=== PATIENT | male | born 1930 | race Caucasian/White ===

== ENCOUNTER 2017-01-16 15:18 | Inpatient (IN) | payer OTHER ==
[~2017-01-16] VITALS: Ht 167.6 cm; Wt 58.1 kg
--- NOTE | ~2017-01-16 | D ---
[facility] [place] [address] DISCHARGE SUMMARY Name: ENRIQUE ANTONIO Room #: 204-P ADM IN M.R.#: [id number] Admission: 01/16/17 Attend Phys: Ramon Dee MD Discharge: Date of : 30 Report #: [id number] THIS REPORT FOR: //name// CC: Ramon Dee DATE OF SERVICE: 01/22/2017 DATE OF ADMISSION: 01/16/2017. DATE OF DISCHARGE: 01/22/2017. ADMITTING DIAGNOSIS: Atrial fibrillation with rapid ventricular response. DISCHARGE DIAGNOSES: 1. Atrial fibrillation with rapid ventricular response. 2. Chronic obstructive pulmonary disease. 3. Aspiration. 4. Peptic ulcer disease. 5. Anemia. 6. Debility. 7. Chronic neuropathy. 8. Allergic rhinitis. 9. Glaucoma. HOSPITAL COURSE: The patient was admitted with weakness, found to be in AFib with RVR. He was seen by cardiology. Meds were ordered and adjusted for his rate. He also had significant coughing and congestion and was thought to be aspirating. Speech was consulted and arrangements were made. He did go on a mechanical soft diet and did better with that. He did have some anemia. He has had a recent ulcer. In light of that, he has resumed on his Protonix. His hemoglobin did remain stable, however. In light of his severe debility and his ulcer, he is not a candidate for anticoagulation. He was very weak and not stable for discharge to home. After his rate was controlled, his speech was improved so that he can be taken to rehab. See the discharge documents for his discharge meds. He will do PT, OT and speech and he have mechanical soft diet and he will see me in outpatient once he has completed his rehab. By: 0719 0946 Ramon Dee MD /nt
--- NOTE | ~2017-01-16 | EKG ---
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: [facility] : 1930 Requested By: Isauro Burger Order Number: [id number] MD: Nicola James Measurements Intervals [place] Rate: 149 P: CT: QRS: 57 QRSD: 121 T: -13 QT: 297 QTc: 468 Interpretive Statements Atrial fibrillation with a rapid ventricular response Right bundle branch block Baseline wander in lead(s) V3 Compared to ECG 12/02/2016 15:47:39 No significant change was found Electronically Signed On 01-18-2017 11:29:59 CDT by Nicola James [email or web address] <ELECTRONICALLY SIGNED> By: Nicola James MD, [facility] 01/18/17 1129 1522 1522 Nicola James MD, [facility] /EPI
--- NOTE | ~2017-01-16 | H ---
[facility] [place] [address] HISTORY AND PHYSICAL Name: ENRIQUE ANTONIO Room #: 207-P ADM IN M.R.#: [id number] Admission: 01/16/17 Attend Phys: Ramon Dee MD Discharge: Date of : 30 Report #: [id number] THIS REPORT FOR: //name// CC: Ramon Dee DATE OF SERVICE: 01/16/2017 CHIEF COMPLAINT: Weakness. HISTORY OF PRESENT ILLNESS: The patient is an 86-year-old male well known to me who called the office late yesterday, said he was very weak, he could not get to the door and had not been eating and drinking for several days. He has no appetite. We called ambulance for him and he is brought to the ER for this weakness. PAST MEDICAL HISTORY: Significant for chronic neuropathy, chronic headaches, prior AFib, prior left arm fracture, DJD with knee replacement, prior rib fractures, chronic pain syndrome, glaucoma, prior ulcer with upper GI bleed in November. MEDICATIONS: Lanoxin 0.125 mg a day, Protonix 40 mg b.i.d., MiraLax 17 mg a day, metoprolol 12.5 mg b.i.d., diltiazem 240 mg a day, gabapentin 300 mg t.i.d., Tylenol No. 3 p.r.n., benzonatate p.r.n., aspirin 81 mg a day. ALLERGIES: No known drug allergies. SOCIAL HISTORY: Prior smoker. Alcohol, he still drinks although he declines. He denies that he still drinks intermittently. REVIEW OF SYSTEMS: CONSTITUTIONAL: Generalized weakness and malaise. No fever or chills. HEENT: No headaches today but he had them chronically. CHEST: He has shortness of breath and rapid heartbeat. No chest pain. GASTROINTESTINAL: Positive for nausea, no vomiting, no diarrhea. GENITOURINARY: No burning or frequency. EXTREMITIES: Chronic joint pains. SKIN: No new rashes or wounds. NEUROLOGIC: Except for the chronic neuropathy, no new numbness. PHYSICAL EXAMINATION: VITAL SIGNS: In the ER, blood pressure 137/98, his pulse is 156, respiratory rate is 13. He is afebrile. Currently his pulse is in the 90s. GENERAL: He is awake and confused, but he is responsive. He is in no acute distress. HEENT: His mucous membranes are dry. NECK: Supple, without adenopathy, thyromegaly or bruits. [facility] [address] [place] [address] HISTORY AND PHYSICAL Name: ENRIQUE ANTONIO Room #: 207-P [facility] IN [facility]#: [id number] Admission: 01/16/17 Attend Phys: Ramon Dee MD Discharge: Date of : 30 Report #: [id number] CHEST: Shows decreased breath sounds in the bases, otherwise no wheezes. CARDIOVASCULAR: He has an irregular rhythm with a rate in the 90s. He was tachycardic in the ER, no S4. ABDOMEN: Soft, mild tenderness at mid epigastrium. Bowel sounds are active. EXTREMITIES: Show no edema. Pulses are intact. LABORATORY DATA: EKG showed AFib with RVR, rate of 149 in the ER. His sodium is 136, potassium 3.6, chloride 102, bicarbonate 28, BUN 14, creatinine 1.1, glucose 120, calcium 8.0, AST 26, ALT 54. CK is 142, MB is 3. Troponin less than 0.04. BNP is 1537. INR is 1.2. WBCs are 5.2, hemoglobin 8.9, hematocrit 28.8, platelet count 427, 70 segs, 19 lymphs. Chest x-ray shows decreased inspiration with atelectasis. ASSESSMENT AND PLAN: 1. Atrial fibrillation with rapid ventricular response recurrent. Started on Cardizem drip. He has slowed down now. Consult cardiology. He did have an echo in November when he had similar episode which showed normal ejection fraction. We will not repeat the echo at this time. 2. Intractable nausea with recent gastric ulcers. He has been on Protonix. Hemoglobin is low. We will monitor hemoglobin, not transfused at this stage. 3. Generalized weakness. He has not been eating and drinking. I am going to go ahead and give him some IV fluids in light of normal ejection fraction to help support that especially with his poor intake. 4. Chronic pain from arthritis. We can renew his home meds otherwise. <ELECTRONICALLY SIGNED> By: Ramon Dee MD 01/18/17 0844 0931 1355 Ramon Dee MD /nt
--- NOTE | ~2017-01-16 | EKG ---
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
--- NOTE | ~2017-01-16 | HC ---
[facility] [place] [address] CONSULTATION Name: ENRIQUE ANTONIO Room #: 207-P [facility] IN M.R.#: [id number] Admission: 01/16/17 Attend Phys: Ramon Dee MD Discharge: Date of : 30 Report #: [id number] THIS REPORT FOR: //name// CC: Ramon Dee REASON FOR CONSULTATION: Atrial fibrillation. HISTORY OF PRESENT ILLNESS: The patient is an 86-year-old gentleman with a history of permanent atrial fibrillation. He has been seen several times by Dr. Tracy. Atrial fibrillation was diagnosed in 2017 and he has been on a combination of rate controlling medications. Anticoagulant therapy has been deemed to be prohibitively high risk due to recurrent anemia and GI blood loss. He now presents with several days of nausea and anorexia. He denies palpitations, chest pain or pressure or heart failure symptoms including orthopnea or paroxysmal nocturnal dyspnea. On presentation, he was found to be in atrial fibrillation with a rapid ventricular response. He is largely asymptomatic from the standpoint of this atrial dysrhythmia. ALLERGIES: There are no known drug allergies. MEDICATIONS: Include digoxin 0.125 mg daily, Protonix, metoprolol 12.5 mg twice daily, Diltiazem CD 240 mg daily. PAST MEDICAL HISTORY: His past history and medical records have been reviewed and include a history of left arm fracture, dislocated right shoulder from a fall, several prior back surgeries, glaucoma. SOCIAL HISTORY: He is a former smoker, prior drinker. FAMILY HISTORY: Unremarkable for premature coronary disease. REVIEW OF SYSTEMS: All systems negative except as that noted above. PHYSICAL EXAMINATION: GENERAL: A pleasant gentleman in no distress, looks frail and chronically debilitated. VITAL SIGNS: Blood pressure is 106/58, heart rate of 84 and irregular. He is afebrile, 5 feet 6 inches tall, 137 pounds. HEENT: There are neither xanthelasma, subcutaneous xanthomata, oral mucosa or digital cyanosis or kyphoscoliosis present. CHEST: Clear to auscultation and percussion. CARDIAC: Reveals an irregularly irregular rhythm with normal S1, S2. No murmurs or rubs. ABDOMEN: Soft and nontender. EXTREMITIES: Without cyanosis, clubbing or edema. Radial pulses are 2+. NEUROLOGIC: He is alert with a nonfocal exam. [facility] [address] [place] [address] CONSULTATION Name: ENRIQUE ANTONIO Room #: [address] [place] [address] IN M.R.#: [id number] Admission: 01/16/17 Attend Phys: Ramon Dee MD Discharge: Date of : 30 Report #: [id number] LABORATORY DATA: Sodium 136, potassium 3.6, creatinine 1.1, troponin of 0. proBNP of 1537. White count 5.2, hemoglobin 8.9, hematocrit 28, platelet count 427. EKG: Atrial fibrillation. IMPRESSION: 1. Atrial fibrillation, permanent. 2. Anemia; history of prior gastrointestinal blood loss. 3. Glaucoma. 4. History of recurrent falls with major trauma. RECOMMENDATIONS: 1. Continued rate controlling agents. 2. Low dose daily aspirin. I agree that the patient represents a prohibitively high risk for long-term anticoagulant therapy despite an elevated CHADS score. No additional cardiovascular testing is needed at this point. Thank you for asking me to participate in his care. <ELECTRONICALLY SIGNED> By: Nicola James MD, [facility] 01/18/17 1209 0944 1724 Nicola James MD, [facility] /nt
[~2017-01-16 15:18] MED LIST: ACETAMINOPHEN-1 EAC1 PO; ALLERGY RELIEF4 MG PO; ASCOMP WITH CO1 EACH PO; ASPIRIN81 M2 PO; AYR SALINE50 ML NASAL; BREATHE RIGHT1 EACH TP; CARDIZEM CD240 MG PO; DIGOXIN125 MCG PO; FIORICET-COD 31 EACH PO; HYPOTEARS EYE D15 ML OP; LOPRESSOR25 PO; MIRALAX17 GM PO; NEURONTIN 300300 M1 PO; NORCO 5-325 TA1 EACH PO; OXYCONTIN20 M1 PO; PANTOPRAZOLE SO40 M1 PO; SYSTANE BALANCE10 ML OP; TESSALON PERLE100 MG PO; TIMOLOL MA0.25 %/52 OPHTHALMIC; VITAMINS; [UNRECOGNIZED DRUG - OTHER] PO
[2017-01-16 15:19] VITALS: BP 137/98
[2017-01-16 15:48] LABS: ABSOLUTE NEUTROPHILS 3.7 thou/uL (1.4-8.2); EOSINOPHILS 0.6 % (0.0-3.0); HEMATOCRIT 28.8 % (42.0-52.0); HEMOGLOBIN 8.9 gm/dL (14.0-18.0); LYMPHOCYTES 19.5 % (24.0-44.0); MANUAL DIFF NO; MCH 25.6 pg (26.0-34.0); MCV 82.6 fL (80.0-100.0); MONOCYTES 8.8 % (1.0-8.0); PLATELET COUNT 427 thou/uL (150-400); POLYS 70.1 % (36.0-66.0); RBC 3.48 mil/uL (4.50-6.00); RDW 18.3 % (10.5-14.5); WBC 5.2 thou/uL (4.0-11.0)
[2017-01-16 15:58] LABS: ANION GAP 6 mmol/L (7-16); BUN 14 mg/dL (7-18); CHLORIDE 102 mmol/L (98-107); CO2 28 mmol/L (21-32); CREATININE 1.1 mg/dL (0.7-1.3); GLUCOSE 120 mg/dL (74-106); POTASSIUM 3.6 mmol/L (3.5-5.1); SODIUM 136 mmol/L (136-145)
[2017-01-16 16:09] LABS: ALBUMIN 3.2 g/dL (3.4-5.0); ALKALINE PHOSPHATASE 94 U/L (46-116); APTT 27.6 Seconds (24.5-32.8); INR 1.2; MAGNESIUM 2.1 mg/dL (1.8-2.4); NT-PRO BRAIN NAT PEPTIDE 1537 pg/mL (<300); SGOT 26 U/L (15-37); SGPT 54 U/L (30-65); TOTAL BILIRUBIN 0.3 mg/dL (<0.1-1.0); TOTAL PROTEIN 6.2 g/dL (6.4-8.2); TROPONIN-I < 0.04 ng/mL (<0.04-0.07)
[2017-01-16 16:20] VITALS: BP 118/79
[2017-01-16 17:58] VITALS: BP 116/69
[2017-01-16 19:20] VITALS: BP 118/79
[2017-01-16 23:24] VITALS: BP 97/64
[2017-01-17 03:17] VITALS: BP 111/76
[2017-01-17 08:00] VITALS: BP 106/58
[2017-01-17 09:42] LABS: HEMATOCRIT 26.2 % (42.0-52.0); HEMOGLOBIN 8.1 gm/dL (14.0-18.0); MCH 25.9 pg (26.0-34.0); MCHC 30.9 g/dL (28.0-37.0); MCV 83.7 fL (80.0-100.0); RBC 3.13 mil/uL (4.50-6.00); RDW 18.1 % (10.5-14.5); WBC 5.1 thou/uL (4.0-11.0)
[2017-01-17 12:00] VITALS: BP 107/69
[2017-01-17 15:44] VITALS: BP 123/82
[2017-01-17 19:30] VITALS: BP 111/80
[2017-01-17 23:57] VITALS: BP 95/64
[2017-01-18] VITALS (7 sets, daily range): BP systolic 93–111; BP diastolic 66–81
[2017-01-19] VITALS (7 sets, daily range): BP systolic 99–121; BP diastolic 67–85
[2017-01-19 03:34] LABS: ALBUMIN 2.6 g/dL (3.4-5.0); CALCIUM 7.6 mg/dL (8.5-10.1); CREATININE 0.9 mg/dL (0.7-1.3); POTASSIUM 3.5 mmol/L (3.5-5.1); TOTAL BILIRUBIN 0.3 mg/dL (<0.1-1.0); TOTAL PROTEIN 5.3 g/dL (6.4-8.2)
[2017-01-20 04:16] VITALS: BP 117/76
[2017-01-20 06:54] LABS: HEMATOCRIT 27.4 % (42.0-52.0); HEMOGLOBIN 8.4 gm/dL (14.0-18.0); MCH 25.4 pg (26.0-34.0); MCHC 30.8 g/dL (28.0-37.0); MCV 82.5 fL (80.0-100.0); RBC 3.33 mil/uL (4.50-6.00); RDW 18.2 % (10.5-14.5); WBC 5.6 thou/uL (4.0-11.0)
[2017-01-20 07:10] LABS: ALBUMIN 2.8 g/dL (3.4-5.0); CALCIUM 7.7 mg/dL (8.5-10.1); CREATININE 0.9 mg/dL (0.7-1.3); POTASSIUM 3.7 mmol/L (3.5-5.1); TOTAL BILIRUBIN 0.4 mg/dL (<0.1-1.0); TOTAL PROTEIN 5.6 g/dL (6.4-8.2)
[2017-01-20 08:00] VITALS: BP 122/90
[2017-01-20 11:37] VITALS: BP 101/71
[2017-01-20 15:05] VITALS: BP 111/72
[2017-01-20 20:03] VITALS: BP 99/65
[2017-01-21] VITALS: BP 127/76
[2017-01-21 03:42] VITALS: BP 127/81
[2017-01-21 08:38] VITALS: BP 105/59
[2017-01-21 15:45] VITALS: BP 109/75
[2017-01-21 20:42] VITALS: BP 111/78
[2017-01-22 03:59] VITALS: BP 115/74
[2017-01-22] MEDS ORDERED: ATENOLOL 25 MG25 M1 PO (07:13)
[2017-01-22 07:29] VITALS: BP 116/78
[2017-01-22 11:47] VITALS: BP 101/65
== END 2017-01-22 13:15 | DRG 291 ==
LOC: ER 15:18 → EROBS 16:36 → 2N 16:36
PROVIDERS: Emergency Medicine; Family Medicine
DX: I50.21 Acute systolic (congestive) heart failure (principal); E43 Unspecified severe protein-calorie malnutrition; J98.11 Atelectasis; M17.11 Unilateral primary osteoarthritis, right knee; H40.9 Unspecified glaucoma; G62.9 Polyneuropathy, unspecified; D64.9 Anemia, unspecified; I48.2 Chronic atrial fibrillation; K27.9 Peptic ulcer, site unspecified, unspecified as acute or chronic, without hemorrhage or perforation; J30.9 Allergic rhinitis, unspecified; R51 Headache; G89.4 Chronic pain syndrome; N40.0 Benign prostatic hyperplasia without lower urinary tract symptoms; J44.9 Chronic obstructive pulmonary disease, unspecified; K59.00 Constipation, unspecified; Z96.651 Presence of right artificial knee joint; Z87.891 Personal history of nicotine dependence; Z82.49 Family history of ischemic heart disease and other diseases of the circulatory system; Z68.20 Body mass index [BMI] 20.0-20.9, adult; Z79.82 Long term (current) use of aspirin; Z90.49 Acquired absence of other specified parts of digestive tract; Z79.899 Other long term (current) drug therapy
CPT/HCPCS: 10081

== ENCOUNTER 2017-01-28 23:13 | Emergency (ER) | payer OTHER ==
[~2017-01-28] VITALS: Ht 167.6 cm; Wt 62.1 kg
--- NOTE | ~2017-01-28 | EKG ---
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
[~2017-01-28 23:13] MED LIST changes: +ATENOLOL 25 MG25 M1 PO
[2017-01-29 00:14] LABS: EOSINOPHILS 4.2 % (0.0-3.0); HEMATOCRIT 25.4 % (42.0-52.0); HEMOGLOBIN 7.9 gm/dL (14.0-18.0); LYMPHOCYTES 26.3 % (24.0-44.0); MCH 24.9 pg (26.0-34.0); MCV 80.6 fL (80.0-100.0); MONOCYTES 7.6 % (1.0-8.0); PLATELET COUNT 306 thou/uL (150-400); POLYS 60.9 % (36.0-66.0); RBC 3.15 mil/uL (4.50-6.00); RDW 18.3 % (10.5-14.5); WBC 8.2 thou/uL (4.0-11.0)
[2017-01-29 00:16] LABS: MANUAL DIFF NO
[2017-01-29 00:16] LABS: URINE BILIRUBIN NEGATIVE (Negative); URINE BLOOD NEGATIVE (Negative); URINE COLOR YELLOW; URINE GLUCOSE-RANDOM* NEGATIVE (Negative); URINE KETONES NEGATIVE (Negative); URINE LEUKOCYTES-REFLEX NEGATIVE (Negative); URINE PROTEIN (DIPSTICK) NEGATIVE (Negative); URINE SPECIFIC GRAVITY 1.025 (1.003-1.035)
[2017-01-29 00:21] LABS: ANION GAP 10 mmol/L (7-16); BUN 17 mg/dL (7-18); CALCIUM 8.3 mg/dL (8.5-10.1); CHLORIDE 102 mmol/L (98-107); CO2 28 mmol/L (21-32); CREATININE 0.9 mg/dL (0.7-1.3); GLUCOSE 92 mg/dL (74-106); POTASSIUM 3.7 mmol/L (3.5-5.1); SODIUM 140 mmol/L (136-145)
[2017-01-29 00:28] LABS: ALBUMIN 3.1 g/dL (3.4-5.0); ALKALINE PHOSPHATASE 91 U/L (46-116); SGOT 24 U/L (15-37); SGPT 29 U/L (30-65); TOTAL BILIRUBIN 0.2 mg/dL (<0.1-1.0); TOTAL PROTEIN 6.6 g/dL (6.4-8.2); TROPONIN-I < 0.04 ng/mL (<0.04-0.07)
[2017-01-29] MEDS ORDERED: ZOFRAN ODT4 MG DISSOLVE (01:19)
== END 2017-01-29 02:27 | disposition home or self-care (01) ==
LOC: ER 23:13
PROVIDERS: Emergency Medicine
DX: R11.2 Nausea with vomiting, unspecified (principal); R05 Cough; R10.9 Unspecified abdominal pain; Z96.651 Presence of right artificial knee joint; Z98.890 Other specified postprocedural states; Z87.891 Personal history of nicotine dependence

== ENCOUNTER 2017-01-31 17:40 | Emergency (ER) | payer OTHER ==
[~2017-01-31] VITALS: Ht 167.6 cm; Wt 61.2 kg
[~2017-01-31 17:40] MED LIST changes: +ZOFRAN ODT4 MG DISSOLVE
[2017-01-31 19:26] LABS: URINE BILIRUBIN NEGATIVE (Negative); URINE BLOOD NEGATIVE (Negative); URINE COLOR YELLOW; URINE GLUCOSE-RANDOM* NEGATIVE (Negative); URINE KETONES NEGATIVE (Negative); URINE NITRITE NEGATIVE (Negative); URINE PROTEIN (DIPSTICK) TRACE (Negative)
[2017-01-31] MEDS ORDERED: ACETAMINOPHEN-1 EAC1 PO (20:21)
== END 2017-01-31 21:59 | disposition home or self-care (01) ==
LOC: ER 17:40
PROVIDERS: Physician Assistant
DX: N50.811 Right testicular pain (principal); G89.29 Other chronic pain; G62.9 Polyneuropathy, unspecified; I48.91 Unspecified atrial fibrillation; Z86.2 Personal history of diseases of the blood and blood-forming organs and certain disorders involving the immune mechanism; Z76.0 Encounter for issue of repeat prescription; Z90.89 Acquired absence of other organs; Z87.891 Personal history of nicotine dependence

== ENCOUNTER 2017-02-09 04:45 | Inpatient (IN) | payer OTHER ==
[~2017-02-09] VITALS: Ht 167.6 cm; Wt 69.4 kg
--- NOTE | ~2017-02-09 | H ---
[facility] [place] [address] HISTORY AND PHYSICAL Name: ENRIQUE ANTONIO Room #: 433-I ADM IN M.R.#: [id number] Admission: 02/09/17 Attend Phys: Ramon Dee MD Discharge: Date of : 30 Report #: [id number] THIS REPORT FOR: //name// CC: Ramon Dee DATE OF SERVICE: 02/09/2017 CHIEF COMPLAINT: Chills, fatigue and cough. HISTORY OF PRESENT ILLNESS: The patient is an 86-year-old male, well known to me, when he told the nursing staff that he was having chills, cough and shortness of breath. He has been having the chills off and on for several days. I had treated him in the facility with cefdinir for upper respiratory tract infection about a week ago. He should be still on that at this time. He also had a history of atrial fibrillation and he is on medications for that. He had had a fall and that is why he presented to the facility. PAST MEDICAL HISTORY: Significant for: 1. Severe DJD with multiple joint surgeries. 2. Chronic pain syndrome. 3. Neuropathy. 4. Chronic headaches. 5. Esophageal strictures. 6. Atrial fibrillation with RVR. 7. Upper gastrointestinal bleed in November 2016. MEDICATIONS: Include Zofran p.r.n., atenolol 25 mg 3 tablets day, digoxin 0.125 mg a day, Protonix 40 mg b.i.d., MiraLax 17 grams a day, Cardizem 240 mg a day, Tylenol No. 3 p.r.n., gabapentin 300 mg t.i.d., Lorazepam 0.5 p.r.n., vitamin B daily, Tessalon Perles p.r.n., aspirin 81 mg a day and antihistamine daily. ALLERGIES: No known drug allergies. SOCIAL HISTORY: He is a prior smoker, not current. Alcohol use fairly regularly until recently admitted. No recreational drugs. REVIEW OF SYSTEMS: CONSTITUTIONAL: Positive for chills. No actual temperatures. He has the fatigue and weakness. HEENT: Chronic headaches. No visual changes. CHEST: Positive as above. No sputum production. GASTROINTESTINAL: No nausea, vomiting, diarrhea or constipation. GENITOURINARY: No burning or frequency. EXTREMITIES: Generalized lower extremity pain and weakness. PHYSICAL EXAMINATION: [facility] [address] [place] [address] HISTORY AND PHYSICAL Name: ENRIQUE ANTONIO Room #: 433-I [facility] IN ..#: [id number] Admission: 02/09/17 Attend Phys: Ramon Dee MD Discharge: Date of : 30 Report #: [id number] VITAL SIGNS: In the ER, blood pressure is 111/69, pulse is 85, respiratory rate is 20 and O2 sat is 95%. His weight is 147 pounds. GENERAL: The patient appears edematous to me and somewhat dyspneic. HEENT: His mucous membranes are moist. NECK: Supple, without increased central venous pressure. CHEST: Shows bilateral wheezes and bibasilar crackles. CARDIOVASCULAR: He has irregular rhythm with the rate in the 90s. ABDOMEN: Soft, nondistended and nontender. No masses. Bowel sounds are active. EXTREMITIES: Show 2+ edema, which is also new since last week. His pulses are intact. SKIN: Shows normal skin turgor. His EKG showed AFib with rate of 87. No new ST-segment changes. LABORATORY DATA: Sodium 140, potassium 3.7, chloride is 102, bicarbonate 25, BUN 27, creatinine 1.2 and glucose is 57. Lactic acid 3.8. Troponin 0.06. BNP 2475. WBC is 9.8, hemoglobin 8.9, hematocrit 29.8, platelet count 193, 58 segs, 6 bands and 16 lymphs. Chest x-ray shows bilateral pleural effusion, per report from the ER. I do not have the report in front of me. ASSESSMENT: 1. Acute respiratory distress with hypoxemia. 2. Hospital-acquired pneumonia. 3. Atrial fibrillation. 4. Congestive heart failure, acute, systolic, probably on the basis of atrial fib and recent respiratory tract infection. PLAN: He will be started on IV antibiotics Zosyn and Levaquin per the protocol. We will add breathing treatments for the wheezing. We will add Lasix 40 mg IV b.i.d. and potassium 20 mEq b.i.d. for his heart failure. Resume his other cardiac meds. We will get PT and OT as well. By: 1306 1507 Ramon Dee MD /nt
--- NOTE | ~2017-02-09 | EKG ---
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: [id number] : 1930 Requested By: Roxie Bejarano Order Number: [id number] MD: Nicola James Measurements Intervals [place] Rate: 87 P: [place]: QRS: 49 QRSD: 117 T: 236 QT: 349 QTc: 420 Interpretive Statements Atrial fibrillation Incomplete right bundle branch block Low voltage, extremity and precordial leads Nonspecific repol abnormality, lateral leads Compared to ECG 02/07/2017 15:29:26 no significant change was found Electronically Signed On 02-10-2017 8:41:06 CDT by Nicola James [email or web address] <ELECTRONICALLY SIGNED> By: Nicola James MD, [facility] 02/10/17 0841 0456 0456 Nicola James MD, [facility] /EPI
[2017-02-09 04:48] VITALS: BP 111/69
[2017-02-09] MEDS ORDERED: ATIVAN0.5 MG (05:04)
[2017-02-09 05:16] LABS: HEMOGLOBIN 8.9 gm/dL (14.0-18.0)
[2017-02-09 05:18] LABS: HEMATOCRIT 29.8 % (42.0-52.0); MCV 79.9 fL (80.0-100.0); PLATELET COUNT 193 thou/uL (150-400); RBC 3.73 mil/uL (4.50-6.00); RDW 18.6 % (10.5-14.5); WBC 9.8 thou/uL (4.0-11.0)
[2017-02-09 05:19] LABS: MANUAL DIFF YES
[2017-02-09 05:24] LABS: CALCIUM 8.3 mg/dL (8.5-10.1); CREATININE 1.2 mg/dL (0.7-1.3); POTASSIUM 3.7 mmol/L (3.5-5.1)
[2017-02-09 05:36] LABS: TROPONIN-I 0.06 ng/mL (<0.04-0.07)
[2017-02-09 06:00] LABS: ABSOLUTE NEUTROPHILS 7.3 thou/uL (1.4-8.2); ANISOCYTOSIS 2+; MACROCYTES 1+; METAMYELOCYTES 1 %; MICROCYTES 1+; SCHISTOCYTES FEW; TOTAL CELL COUNT 100
[2017-02-09 06:01] LABS: BURR CELLS 1+; POLYCHROMASIA OCCASIONAL
[2017-02-09 07:18] VITALS: BP 116/77
[2017-02-09 08:36] VITALS: BP 110/67
[2017-02-09 12:00] VITALS: BP 128/85
[2017-02-09 16:00] VITALS: BP 129/73
[2017-02-09 20:30] VITALS: BP 108/78
[2017-02-10 04:07] VITALS: BP 112/68
[2017-02-10 07:51] VITALS: BP 121/68
[2017-02-10 09:03] LABS: HEMATOCRIT 32.2 % (42.0-52.0); HEMOGLOBIN 9.8 gm/dL (14.0-18.0); MCH 23.6 pg (26.0-34.0); MCHC 30.4 g/dL (28.0-37.0); MCV 77.6 fL (80.0-100.0); RBC 4.15 mil/uL (4.50-6.00); RDW 18.4 % (10.5-14.5); WBC 7.1 thou/uL (4.0-11.0)
[2017-02-10 09:12] LABS: CALCIUM 7.7 mg/dL (8.5-10.1); CREATININE 0.8 mg/dL (0.7-1.3)
[2017-02-10 09:16] LABS: POTASSIUM 2.8 mmol/L (3.5-5.1)
[2017-02-10 12:15] VITALS: BP 103/56
[2017-02-10 16:00] VITALS: BP 90/51
[2017-02-10 19:42] VITALS: BP 91/52
[2017-02-11 05:43] VITALS: BP 110/74
[2017-02-11 08:38] VITALS: BP 114/66
[2017-02-11 08:56] LABS: HEMATOCRIT 28.5 % (42.0-52.0); HEMOGLOBIN 8.7 gm/dL (14.0-18.0); MCH 23.6 pg (26.0-34.0); MCHC 30.4 g/dL (28.0-37.0); MCV 77.8 fL (80.0-100.0); RBC 3.67 mil/uL (4.50-6.00); RDW 18.4 % (10.5-14.5); WBC 6.6 thou/uL (4.0-11.0)
[2017-02-11 09:08] LABS: CALCIUM 7.9 mg/dL (8.5-10.1); CREATININE 0.8 mg/dL (0.7-1.3); POTASSIUM 3.3 mmol/L (3.5-5.1)
[2017-02-11 12:26] VITALS: BP 98/61
[2017-02-11 16:31] VITALS: BP 100/61
[2017-02-11 19:45] VITALS: BP 100/62
[2017-02-12 03:30] VITALS: BP 109/67
[2017-02-12 08:24] VITALS: BP 107/64
[2017-02-12 09:23] LABS: HEMATOCRIT 27.5 % (42.0-52.0); HEMOGLOBIN 8.4 gm/dL (14.0-18.0); MCH 23.6 pg (26.0-34.0); MCHC 30.5 g/dL (28.0-37.0); MCV 77.4 fL (80.0-100.0); RBC 3.55 mil/uL (4.50-6.00); RDW 19.1 % (10.5-14.5); WBC 7.3 thou/uL (4.0-11.0)
[2017-02-12 09:35] LABS: CALCIUM 7.4 mg/dL (8.5-10.1); CREATININE 0.9 mg/dL (0.7-1.3); POTASSIUM 3.6 mmol/L (3.5-5.1)
[2017-02-12 12:06] VITALS: BP 98/60
[2017-02-12 16:57] VITALS: BP 90/53
[2017-02-12 19:40] VITALS: BP 89/53
[2017-02-13 00:36] VITALS: BP 98/63
[2017-02-13 04:01] VITALS: BP 115/65
[2017-02-13 08:00] VITALS: BP 103/59
[2017-02-13 16:00] VITALS: BP 84/48
[2017-02-13 19:25] VITALS: BP 93/55
[2017-02-14 03:30] VITALS: BP 99/62
[2017-02-14 06:02] LABS: CALCIUM 7.9 mg/dL (8.5-10.1); POTASSIUM 4.2 mmol/L (3.5-5.1)
[2017-02-14] MEDS ORDERED: ACETAMINOPHEN-1 EAC1 PO (08:38)
[2017-02-14] MEDS ORDERED: BUTALB-ACETAMI1 EACH PO (08:38)
[2017-02-14] MEDS ORDERED: LEVAQUIN 500 M500 M2 PO (08:40)
== END 2017-02-14 16:20 | DRG 177 ==
LOC: ER 04:45 → 4S 06:08 → EROBS 06:08 → 4S 07:19
PROVIDERS: Emergency Medicine; Family Medicine
DX: J15.6 Pneumonia due to other Gram-negative bacteria (principal); I50.23 Acute on chronic systolic (congestive) heart failure; J18.9 Pneumonia, unspecified organism; Z96.651 Presence of right artificial knee joint; H40.9 Unspecified glaucoma; G62.9 Polyneuropathy, unspecified; E86.0 Dehydration; G89.4 Chronic pain syndrome; R53.81 Other malaise; D63.8 Anemia in other chronic diseases classified elsewhere; I48.2 Chronic atrial fibrillation; R51 Headache; Z90.49 Acquired absence of other specified parts of digestive tract; Z87.891 Personal history of nicotine dependence; Z87.81 Personal history of (healed) traumatic fracture
CPT/HCPCS: 10100

== ENCOUNTER 2017-04-20 09:16 | Inpatient (IN) | payer OTHER ==
[~2017-04-20] VITALS: Ht 167.6 cm; Wt 58.2 kg
--- NOTE | ~2017-04-20 | EKG ---
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
[2017-04-20 09:16] VITALS: BP 111/51
[~2017-04-20 09:16] MED LIST changes: +ATIVAN0.5 MG; +BUTALB-ACETAMI1 EACH PO; +LEVAQUIN 500 M500 M2 PO
[2017-04-20 09:38] LABS: HEMATOCRIT 32.8 % (42.0-52.0); HEMOGLOBIN 10.4 gm/dL (14.0-18.0); MCH 26.6 pg (26.0-34.0); MCHC 31.6 g/dL (28.0-37.0); MCV 84.4 fL (80.0-100.0); PLATELET COUNT 228 thou/uL (150-400); RBC 3.89 mil/uL (4.50-6.00); RDW 21.2 % (10.5-14.5); WBC 5.3 thou/uL (4.0-11.0)
[2017-04-20 09:42] LABS: MANUAL DIFF YES
[2017-04-20 09:46] LABS: ANION GAP 7 mmol/L (7-16); BUN 8 mg/dL (7-18); CHLORIDE 109 mmol/L (98-107); CO2 26 mmol/L (21-32); CREATININE 0.8 mg/dL (0.7-1.3); GLUCOSE 98 mg/dL (74-106); POTASSIUM 3.5 mmol/L (3.5-5.1); SODIUM 142 mmol/L (136-145)
[2017-04-20 09:53] LABS: ALKALINE PHOSPHATASE 71 U/L (46-116); SGOT 23 U/L (15-37); SGPT 14 U/L (30-65); TOTAL BILIRUBIN 0.3 mg/dL (<0.1-1.0); TROPONIN-I < 0.04 ng/mL (<0.04-0.07)
[2017-04-20 10:09] LABS: ABSOLUTE NEUTROPHILS 3.2 thou/uL (1.4-8.2); ANISOCYTOSIS 2+; TOTAL CELL COUNT 100
[2017-04-20 10:37] LABS: URINE BLOOD NEGATIVE (Negative); URINE COLOR YELLOW; URINE GLUCOSE-RANDOM* NEGATIVE (Negative); URINE KETONES NEGATIVE (Negative); URINE LEUKOCYTES-REFLEX NEGATIVE (Negative); URINE PROTEIN (DIPSTICK) TRACE (Negative); URINE SPECIFIC GRAVITY >= 1.030 (1.003-1.035)
[2017-04-20 10:39] LABS: ICTOTEST (BILI CONFIRMATORY) Negative (Negative); URINE BILIRUBIN NEGATIVE (Negative)
[2017-04-20] MEDS ORDERED: SORINE 80 MG TA80 MG PO (13:31)
[2017-04-20] MEDS ORDERED: BUSPIRONE HCL5 MG PO (13:33)
[2017-04-20] MEDS ORDERED: SEROQUEL 25 MG25 M1 PO (13:34)
[2017-04-20] MEDS ORDERED: DEPAKOTE125 MG PO (13:34)
[2017-04-20] MEDS ORDERED: GABAPENTIN 100100 MG PO (13:34)
[2017-04-20 15:00] VITALS: BP 83/55
[2017-04-20 17:22] VITALS: BP 114/70
[2017-04-20 20:17] VITALS: BP 118/81
[2017-04-20 23:29] VITALS: BP 119/64
[2017-04-21 08:48] VITALS: BP 150/78
[2017-04-21 12:04] VITALS: BP 110/62
[2017-04-21 16:01] VITALS: BP 115/64
[2017-04-21 19:33] VITALS: BP 136/77
[2017-04-22 03:30] VITALS: BP 132/78
[2017-04-22 07:51] VITALS: BP 127/71
[2017-04-22 11:49] VITALS: BP 120/78
[2017-04-22 16:15] VITALS: BP 135/84
[2017-04-22 19:27] VITALS: BP 135/77
[2017-04-23 03:47] VITALS: BP 100/56
[2017-04-23 07:39] VITALS: BP 113/71
== END 2017-04-23 15:35 | DRG 308 ==
LOC: ER 09:16 → EROBS 10:38 → 2N 10:38
PROVIDERS: Physician Assistant
DX: I48.0 Paroxysmal atrial fibrillation (principal); E43 Unspecified severe protein-calorie malnutrition; H40.9 Unspecified glaucoma; I50.9 Heart failure, unspecified; Z96.651 Presence of right artificial knee joint; G89.4 Chronic pain syndrome; D64.9 Anemia, unspecified; R53.81 Other malaise; G62.9 Polyneuropathy, unspecified; K59.00 Constipation, unspecified; L89.151 Pressure ulcer of sacral region, stage 1; I95.9 Hypotension, unspecified; I49.5 Sick sinus syndrome; W18.39XA Other fall on same level, initial encounter; Y93.89 Activity, other specified; Y92.098 Other place in other non-institutional residence as the place of occurrence of the external cause; Z87.891 Personal history of nicotine dependence; Z90.49 Acquired absence of other specified parts of digestive tract; Z87.81 Personal history of (healed) traumatic fracture; Y99.8 Other external cause status; Z68.20 Body mass index [BMI] 20.0-20.9, adult
CPT/HCPCS: 10081

== ENCOUNTER 2017-05-20 18:45 | Inpatient (IN) | payer OTHER ==
[~2017-05-20] VITALS: Ht 167.6 cm; Wt 54.5 kg
--- NOTE | ~2017-05-20 | EKG ---
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
[~2017-05-20 18:45] MED LIST changes: +BUSPIRONE HCL5 MG PO; +DEPAKOTE125 MG PO; +GABAPENTIN 100100 MG PO; +SEROQUEL 25 MG25 M1 PO; +SORINE 80 MG TA80 MG PO
[2017-05-20 18:46] VITALS: BP 155/70
[2017-05-20 18:58] LABS: URINE BILIRUBIN NEGATIVE (Negative); URINE BLOOD NEGATIVE (Negative); URINE COLOR YELLOW; URINE GLUCOSE-RANDOM* NEGATIVE (Negative); URINE KETONES NEGATIVE (Negative); URINE NITRITE NEGATIVE (Negative); URINE PROTEIN (DIPSTICK) NEGATIVE (Negative); URINE UROBILINOGEN 0.2 E.U./dl (0.2-1.0)
[2017-05-20 20:18] LABS: HEMOGLOBIN 11.4 gm/dL (14.0-18.0)
[2017-05-20 20:19] LABS: HEMATOCRIT 37.2 % (42.0-52.0); MCH 28.5 pg (26.0-34.0); MCHC 30.8 g/dL (28.0-37.0); MCV 92.6 fL (80.0-100.0); PLATELET COUNT 203 thou/uL (150-400); RBC 4.02 mil/uL (4.50-6.00); RDW 24.5 % (10.5-14.5); WBC 7.1 thou/uL (4.0-11.0)
[2017-05-20 20:22] LABS: ANION GAP 9 mmol/L (7-16); BUN 21 mg/dL (7-18); CALCIUM 8.6 mg/dL (8.5-10.1); CHLORIDE 106 mmol/L (98-107); CO2 28 mmol/L (21-32); GLUCOSE 77 mg/dL (74-106); POTASSIUM 3.5 mmol/L (3.5-5.1); SODIUM 143 mmol/L (136-145)
[2017-05-20 20:25] LABS: MANUAL DIFF YES
[2017-05-20 20:36] LABS: ALBUMIN 3.5 g/dL (3.4-5.0); ALKALINE PHOSPHATASE 82 U/L (46-116); DIRECT BILIRUBIN < 0.1 mg/dL (<0.1-0.3); NT-PRO BRAIN NAT PEPTIDE 2126 pg/mL (<300); SGOT 34 U/L (15-37); SGPT 10 U/L (30-65); TOTAL BILIRUBIN 0.4 mg/dL (<0.1-1.0); TOTAL PROTEIN 7.1 g/dL (6.4-8.2); TROPONIN-I < 0.04 ng/mL (<0.04-0.07)
[2017-05-20 20:44] LABS: ABSOLUTE NEUTROPHILS 4.3 thou/uL (1.4-8.2); TOTAL CELL COUNT 100
[2017-05-20 20:45] LABS: ANISOCYTOSIS 1+; POIKILOCYTOSIS 1+; POLYCHROMASIA OCCASIONAL
[2017-05-20 21:39] VITALS: BP 101/68
[2017-05-20 21:41] VITALS: BP 107/68
[2017-05-20 22:29] VITALS: BP 114/76
[2017-05-21 04:29] VITALS: BP 104/49
[2017-05-21 05:57] LABS: HEMATOCRIT 35.8 % (42.0-52.0); HEMOGLOBIN 11.2 gm/dL (14.0-18.0); MCH 28.4 pg (26.0-34.0); MCHC 31.3 g/dL (28.0-37.0); MCV 90.8 fL (80.0-100.0); RBC 3.94 mil/uL (4.50-6.00); RDW 24.8 % (10.5-14.5); WBC 6.5 thou/uL (4.0-11.0)
[2017-05-21 06:24] LABS: CREATININE 0.9 mg/dL (0.7-1.3); TOTAL BILIRUBIN 0.3 mg/dL (<0.1-1.0); TOTAL PROTEIN 6.4 g/dL (6.4-8.2)
[2017-05-21 06:29] LABS: POTASSIUM 2.7 mmol/L (3.5-5.1)
[2017-05-21 06:53] LABS: MAGNESIUM 1.8 mg/dL (1.8-2.4)
[2017-05-21 07:30] VITALS: BP 88/61
[2017-05-21 12:00] VITALS: BP 110/68
[2017-05-21 15:39] VITALS: BP 113/76
[2017-05-21 20:15] VITALS: BP 127/88
[2017-05-22 03:50] VITALS: BP 127/79
[2017-05-22 07:55] VITALS: BP 152/97
[2017-05-22 11:10] VITALS: BP 137/88
[2017-05-22 15:28] VITALS: BP 144/92
[2017-05-22 19:20] VITALS: BP 159/94
[2017-05-23 04:34] VITALS: BP 158/99
[2017-05-23 08:02] VITALS: BP 149/91
[2017-05-23 14:32] VITALS: BP 145/89
[2017-05-23 16:56] VITALS: BP 140/89
[2017-05-23 19:09] VITALS: BP 161/110
[2017-05-23 23:20] VITALS: BP 151/94
[2017-05-24 03:51] VITALS: BP 141/87
[2017-05-24 07:13] VITALS: BP 136/100
[2017-05-24 11:54] VITALS: BP 110/59
[2017-05-24 16:04] VITALS: BP 133/77
[2017-05-24 20:00] VITALS: BP 126/80
[2017-05-25 04:41] VITALS: BP 142/93
[2017-05-25 07:45] VITALS: BP 154/99
[2017-05-25 11:51] VITALS: BP 138/85
[2017-05-25 15:33] VITALS: BP 146/103
[2017-05-25 19:25] VITALS: BP 135/87
[2017-05-25 20:44] LABS: HEMATOCRIT 35.5 % (42.0-52.0); HEMOGLOBIN 11.3 gm/dL (14.0-18.0); MCH 28.6 pg (26.0-34.0); MCHC 31.8 g/dL (28.0-37.0); RBC 3.95 mil/uL (4.50-6.00); RDW 23.5 % (10.5-14.5); WBC 9.1 thou/uL (4.0-11.0)
[2017-05-25 23:47] VITALS: BP 126/82
[2017-05-26 05:24] VITALS: BP 136/88
[2017-05-26 07:31] VITALS: BP 143/94
[2017-05-26 11:29] VITALS: BP 138/94
[2017-05-26 16:37] VITALS: BP 108/67
[2017-05-26 19:19] VITALS: BP 107/73
[2017-05-27 03:43] VITALS: BP 123/79
[2017-05-27 06:07] LABS: HEMOGLOBIN 11.2 gm/dL (14.0-18.0); MCH 27.9 pg (26.0-34.0); MCHC 30.4 g/dL (28.0-37.0); RBC 4.02 mil/uL (4.50-6.00); RDW 23.3 % (10.5-14.5); WBC 7.7 thou/uL (4.0-11.0)
[2017-05-27 07:44] VITALS: BP 133/96
[2017-05-27 12:02] VITALS: BP 109/71
[2017-05-27 15:20] VITALS: BP 113/74
[2017-05-27 19:19] VITALS: BP 120/73
[2017-05-28] MEDS ORDERED: AUGMENTIN 875875 MG PO (07:34)
[2017-05-28] MEDS ORDERED: CARDIZEM CD120 MG PO (07:35)
[2017-05-28] MEDS ORDERED: PREDNISONE 20 M20 M1 PO (07:36)
[2017-05-28 07:38] VITALS: BP 118/75
[2017-05-28 11:50] VITALS: BP 109/66
[2017-06-05] MEDS ORDERED: COLACE100 MG PO (20:25)
[2017-06-05] MEDS ORDERED: MOBIC7.5 MG PO (21:02)
== END 2017-05-28 13:30 | DRG 177 ==
LOC: ER 18:45 → EROBS 21:16 → 4W 21:16
PROVIDERS: Family Medicine; Nurse Practitioner
DX: J69.0 Pneumonitis due to inhalation of food and vomit (principal); J96.00 Acute respiratory failure, unspecified whether with hypoxia or hypercapnia; E44.0 Moderate protein-calorie malnutrition; Z68.1 Body mass index [BMI] 19.9 or less, adult; H40.9 Unspecified glaucoma; I48.91 Unspecified atrial fibrillation; R53.81 Other malaise; Z96.651 Presence of right artificial knee joint; Z79.899 Other long term (current) drug therapy; Z87.891 Personal history of nicotine dependence; Z90.49 Acquired absence of other specified parts of digestive tract
CPT/HCPCS: 10045

== ENCOUNTER 2017-06-12 10:12 | Inpatient (IN) | payer OTHER ==
[~2017-06-12] VITALS: Ht 160 cm; Wt 68.0 kg
--- NOTE | ~2017-06-12 | EKG ---
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: PEDRO : 1930 Requested By: Ale Fam Order Number: [id number] MD: Nicola James Measurements Intervals [place] Rate: 70 P: 1 MS: 95 QRS: -22 QRSD: 113 T: -23 QT: 372 QTc: 402 Interpretive Statements Sinus rhythm Atrial premature complexes Right bundle branch block Compared to ECG 05/20/2017 18:56:15 No significant change was found Electronically Signed On 06-15-2017 13:24:56 CDT by Nicola James [email or web address] <ELECTRONICALLY SIGNED> By: Nicola James MD, [facility] 06/15/17 1324 1030 1030 Nicola James MD, [facility] /EPI
[~2017-06-12 10:12] MED LIST changes: +AUGMENTIN 875875 MG PO; +CARDIZEM CD120 MG PO; +COLACE100 MG PO; +MOBIC7.5 MG PO; +PREDNISONE 20 M20 M1 PO
[2017-06-12 11:33] VITALS: BP 85/44
[2017-06-12 11:51] LABS: HEMATOCRIT 32.8 % (42.0-52.0); HEMOGLOBIN 10.4 gm/dL (14.0-18.0); MANUAL DIFF YES; MCH 28.1 pg (26.0-34.0); MCHC 31.8 g/dL (28.0-37.0); MCV 88.4 fL (80.0-100.0); PLATELET COUNT 233 thou/uL (150-400); RBC 3.71 mil/uL (4.50-6.00); RDW 20.7 % (10.5-14.5); WBC 3.5 thou/uL (4.0-11.0)
[2017-06-12 12:11] LABS: ANION GAP 9 mmol/L (7-16); BUN 9 mg/dL (7-18); CALCIUM 8.3 mg/dL (8.5-10.1); CHLORIDE 105 mmol/L (98-107); CO2 26 mmol/L (21-32); CREATININE 0.9 mg/dL (0.7-1.3); GLUCOSE 88 mg/dL (74-106); POTASSIUM 3.3 mmol/L (3.5-5.1); SODIUM 140 mmol/L (136-145)
[2017-06-12 12:20] LABS: ALBUMIN 3.1 g/dL (3.4-5.0); ALKALINE PHOSPHATASE 105 U/L (46-116); SGOT 26 U/L (15-37); SGPT 13 U/L (30-65); TOTAL BILIRUBIN 0.3 mg/dL (<0.1-1.0); TOTAL PROTEIN 6.1 g/dL (6.4-8.2); TROPONIN-I < 0.04 ng/mL (<0.04-0.07)
[2017-06-12 12:49] VITALS: BP 92/48
[2017-06-12 12:54] LABS: ABSOLUTE NEUTROPHILS 1.1 thou/uL (1.4-8.2); TOTAL CELL COUNT 100
[2017-06-12 12:57] LABS: ANISOCYTOSIS 2+; OVALOCYTES FEW
[2017-06-12 13:43] VITALS: BP 102/68
[2017-06-12 14:02] VITALS: BP 111/63
[2017-06-12 19:59] VITALS: BP 95/56
[2017-06-13 04:50] VITALS: BP 104/67
[2017-06-13 07:54] VITALS: BP 115/65
[2017-06-13] MEDS ORDERED: NEURONTIN 300300 M1 PO (19:25)
[2017-06-13] MEDS ORDERED: ASPIR 8181 MG PO (19:25)
== END 2017-06-13 16:15 | disposition left against medical advice (07) | DRG 948 ==
LOC: ER 10:12 → EROBS 12:41 → 4S 12:41
PROVIDERS: Nurse Practitioner Family
DX: R53.1 Weakness (principal); I95.9 Hypotension, unspecified; R29.6 Repeated falls; H40.9 Unspecified glaucoma; I48.2 Chronic atrial fibrillation; K59.00 Constipation, unspecified; M79.642 Pain in left hand; Z53.21 Procedure and treatment not carried out due to patient leaving prior to being seen by health care provider; Z90.49 Acquired absence of other specified parts of digestive tract; Z79.899 Other long term (current) drug therapy; Z87.891 Personal history of nicotine dependence
CPT/HCPCS: 10100

== ENCOUNTER 2017-06-13 18:07 | Inpatient (IN) | payer OTHER ==
[~2017-06-13] VITALS: Ht 167.6 cm; Wt 57.2 kg
--- NOTE | ~2017-06-13 | HC ---
[facility] [place] [address] CONSULTATION Name: ENRIQUE ANTONIO Room #: 454-P [facility] IN M.R.#: [id number] Admission: 06/13/17 Attend Phys: Ramon Dee MD Discharge: Date of : 30 Report #: [id number] THIS REPORT FOR: //name// CC: Ramon Dee DATE OF SERVICE: 06/14/2017 REASON FOR CONSULTATION: Atrial fibrillation with rapid ventricular response. HISTORY OF PRESENT ILLNESS: This is an 87-year-old male patient, previously seen for paroxysmal atrial fibrillation, tachybrady syndrome, presented to the Emergency Room complaining of shortness of air. The patient has had several falls, also as an outpatient prior to this admission. The patient states he had been doing fairly well and had been seen in the Emergency Room and left AMA. He was admitted 2 weeks ago for weakness and falls attributable to a tachybrady syndrome. The patient continues to refuse an insertion of a permanent pacemaker and rate controlling medications. He did not have any chest pain, pressure, tightness or heaviness at this time, just shortness of breath. Upon review of his prior history, the patient had been treated with rate controlling medications, but presented with bradyarrhythmias and syncope due to profound bradyarrhythmias and hypotension. He was diagnosed with tachybrady syndrome and recommended to proceed with a permanent pacemaker since he does have episodes of rapid rate, requiring rate control. The patient is unrealistic about his current condition stating that it is just confusion or other excuses. ALLERGIES: No known drug allergies. PAST MEDICAL HISTORY: Significant for: 1. Paroxysmal atrial fibrillation with sick sinus syndrome. 2. Recurrent headaches, etiology of which is uncertain. 3. Glaucoma. 4. Degenerative joint disease. PAST SURGICAL HISTORY: 1. Right arm fraction. 2. Back surgery. 3. Appendectomy. MEDICATIONS: At home are ____, acetaminophen and caffeine, Tylenol No. 3, Meloxicam, pantoprazole, MiraLax, Augmentin, Cardizem, prednisone, aspirin, gabapentin. Timolol, ____. SOCIAL HISTORY: The patient is not currently smoking, but is a former smoker. [facility] [address] [place] [address] CONSULTATION Name: ENRIQUE ANTONIO Room #: 454-P [facility] IN M.R.#: [id number] Admission: 06/13/17 Attend Phys: Ramon Dee MD Discharge: Date of : 30 Report #: [id number] He is a former drinker, does not now. He does not follow up with exercise regimen or dietary restriction. FAMILY HISTORY: Negative for significant premature cardiovascular or neurovascular disease in first-degree and second degree relatives. REVIEW OF SYSTEMS: Except for symptoms previously mentioned and those commensurate with comorbid state, the 10-point review of system is negative PHYSICAL EXAMINATION: GENERAL: Well-developed, well-nourished male, resting comfortably in no acute distress. VITAL SIGNS: Noted and reviewed in the chart. HEENT: Normocephalic, atraumatic. Pupils are equal, round, reactive to light and accommodation. Extraocular muscles are intact. Sclerae and conjunctivae are anicteric. NECK: JVD is normal. Carotid upstrokes are bilaterally symmetrical. No bruits are heard. No thyromegaly. No lymphadenopathy. LUNGS: Clear to auscultation. No wheezes, rhonchi or crackles. No CVA tenderness. CARDIAC: Demonstrates a regular rhythm. Normal first and second heart sounds. No ventricular or atrial gallops, no rubs noted. No murmurs. No lifts or heaves, PMI normal. ABDOMEN: Soft, nontender, nondistended. Normal bowel sounds. EXTREMITIES: Without cyanosis, clubbing or edema. Distal pulses are intact. DTR symmetrical. NEUROLOGIC: Cranial nerves 2-12 are grossly normal and symmetrical. PSYCHIATRIC: Alert, oriented with normal affect. SKIN: Warm and dry. ELECTROCARDIOGRAM: Demonstrated atrial fibrillation with rapid ventricular response and right bundle branch block without acute ST segment changes. LABORATORY DATA: Demonstrated a BUN and creatinine of 5 and 1.0. Estimated GFR 71. Troponin is less than 0.04. INR is 1.1. RADIOLOGIC: Pending. IMPRESSION: 1. Atrial fibrillation with rapid ventricular response. He is on IV cardioversion controlled, but concerned that I have is what happened before that wants to be placed oral agents to control the fast rate he is going to be become bradycardic and hypotensive and have symptoms that affect. I sat and discussed with him at length the benefits of permanent pacing and rate control with medications. He continues to mention however, his uncle with a pacemaker when his battery . I tried to point and emphasized that the different situation, he is not pacer dependent and that would not be the case with him. [facility] [address] [place] [address] CONSULTATION Name: ENRIQUE ANTONIO Room #: 454-P [facility] IN M.R.#: [id number] Admission: 06/13/17 Attend Phys: Ramon Dee MD Discharge: Date of : 30 Report #: [id number] He states he would think about it and let me know. 2. Acid peptic disease, not an issue at this point in time, he states he is not having any problems. 3. Seasonal rhinitis, controlled on his medications. 4. Recurrent headaches as per primary care. <ELECTRONICALLY SIGNED> By: Immanuel Justice MD 06/15/17 1256 1256 2205 Immanuel Justice MD /nt
--- NOTE | ~2017-06-13 | EKG ---
[place] [address] [facility] [place] [address] ELECTROCARDIOGRAM REPORT Name: ENRIQUE ANTONIO PAUL Room #: 454-P ADM IN M.R.#: [id number] Admission: 06/13/17 Attend Phys: Ramon Dee MD Discharge: Date of : 30 Report #: [id number] THIS REPORT FOR: //name// [facility] ED Test Date: 2017-06-13 Test Time: 18:17:54 Pat Name: ENRIQUE ANTONIO Department: Room: 454 P Gender: M Bad Cloth Checker: MZOOK : 1930 Requested By: Isauro Burger Order Number: [id number] MD: Nicola James Measurements Intervals [place] Rate: 147 P: CT: QRS: 56 QRSD: 118 T: -12 QT: 304 QTc: 476 Interpretive Statements Atrial fibrillation with rapid V-rate Right bundle branch block Low voltage, precordial leads Compared to ECG 05/20/2017 18:56:15 Low QRS voltage now present Electronically Signed On 06-15-2017 13:38:57 CDT by Nicola James [email or web address] <ELECTRONICALLY SIGNED> By: Nicola James MD, [facility] 06/15/17 1338 1817 1817 Nicola James MD, [facility] /EPI
[2017-06-13 18:17] VITALS: BP 143/89
[2017-06-13 19:18] LABS: CALCIUM 8.4 mg/dL (8.5-10.1); POTASSIUM 3.7 mmol/L (3.5-5.1)
[2017-06-13] MEDS ORDERED: NEURONTIN 300300 M1 PO (19:25)
[2017-06-13] MEDS ORDERED: ASPIR 8181 MG PO (19:25)
[2017-06-13 19:27] LABS: APTT 26.8 Seconds (24.5-32.8); INR 1.1; PROTIME 11.4 Seconds (9.3-11.4)
[2017-06-13 20:27] VITALS: BP 143/89
[2017-06-13 20:50] VITALS: BP 127/76
[2017-06-14] VITALS: BP 128/78
[2017-06-14 04:00] VITALS: BP 121/75
[2017-06-14 07:20] VITALS: BP 122/74
[2017-06-14 11:50] VITALS: BP 124/76
[2017-06-14 20:01] VITALS: BP 134/88
[2017-06-15] VITALS (7 sets, daily range): BP systolic 97–131; BP diastolic 58–85
[2017-06-16] VITALS (8 sets, daily range): BP systolic 130–141; BP diastolic 80–89
[2017-06-16] MEDS ORDERED: CARTIA XT120 M1 PO (07:41)
== END 2017-06-16 15:13 | disposition home health service (06) | DRG 310 ==
LOC: ER 18:07 → 4W 19:54 → EROBS 19:54 → 4W 20:27
PROVIDERS: Emergency Medicine
DX: I48.0 Paroxysmal atrial fibrillation (principal); H40.9 Unspecified glaucoma; K30 Functional dyspepsia; J30.2 Other seasonal allergic rhinitis; Z96.651 Presence of right artificial knee joint; S69.90XA Unspecified injury of unspecified wrist, hand and finger(s), initial encounter; W18.39XA Other fall on same level, initial encounter; Z90.49 Acquired absence of other specified parts of digestive tract; Z87.891 Personal history of nicotine dependence; Z79.899 Other long term (current) drug therapy; Y93.89 Activity, other specified; Y92.89 Other specified places as the place of occurrence of the external cause; Y99.8 Other external cause status
CPT/HCPCS: 10045

== ENCOUNTER 2017-07-08 11:56 | Observation (INO) | payer OTHER ==
[~2017-07-08] VITALS: Ht 167.6 cm; Wt 59.4 kg
[2017-07-08 11:56] VITALS: BP 147/107
[~2017-07-08 11:56] MED LIST changes: +ASPIR 8181 MG PO; +CARTIA XT120 M1 PO
[2017-07-08] MEDS ORDERED: BUTALB-APAP-CA1 EACH PO (12:07)
[2017-07-08 18:13] LABS: ABSOLUTE NEUTROPHILS 5.3 thou/uL (1.4-8.2); BASOPHILS 0.4 % (0.0-2.0); EOSINOPHILS 1.2 % (0.0-3.0); HEMATOCRIT 35.7 % (42.0-52.0); HEMOGLOBIN 11.4 gm/dL (14.0-18.0); LYMPHOCYTES 17.9 % (24.0-44.0); MCH 28.4 pg (26.0-34.0); MCV 88.7 fL (80.0-100.0); PLATELET COUNT 221 thou/uL (150-400); POLYS 72.5 % (36.0-66.0); RBC 4.02 mil/uL (4.50-6.00); WBC 7.3 thou/uL (4.0-11.0)
[2017-07-08 18:16] LABS: MANUAL DIFF NO
[2017-07-08 18:26] LABS: CALCIUM 8.6 mg/dL (8.5-10.1); CREATININE 0.8 mg/dL (0.7-1.3); POTASSIUM 3.6 mmol/L (3.5-5.1)
[2017-07-08 18:45] VITALS: BP 140/87
[2017-07-08 20:00] VITALS: BP 149/103
[2017-07-09] VITALS: BP 142/96
[2017-07-09 04:00] VITALS: BP 143/92
[2017-07-09 07:25] VITALS: BP 142/88
[2017-07-09 15:00] VITALS: BP 131/86
[2017-07-09 20:01] VITALS: BP 142/87
[2017-07-10 05:03] VITALS: BP 133/77
[2017-07-10] MEDS ORDERED: COLACE 100 MG100 MG PO (07:39)
[2017-07-10] MEDS ORDERED: MIRALAX17 GM PO (07:39)
[2017-07-10] MEDS ORDERED: SENNA8.6 MG PO (07:40)
[2017-07-10 08:03] VITALS: BP 127/96
[2017-07-10 15:39] VITALS: BP 127/96
== END 2017-07-10 16:11 | disposition home health service (06) ==
LOC: ER 11:56 → 4N 16:59 → EROBS 16:59 → 4N 19:11
PROVIDERS: Nurse Practitioner
DX: K59.00 Constipation, unspecified (principal); I48.91 Unspecified atrial fibrillation; R51 Headache; R53.81 Other malaise; M48.00 Spinal stenosis, site unspecified; Z90.49 Acquired absence of other specified parts of digestive tract; Z87.891 Personal history of nicotine dependence; Z91.81 History of falling

== ENCOUNTER 2017-10-02 20:11 | Observation (INO) | payer OTHER ==
[~2017-10-02] VITALS: Ht 162.6 cm; Wt 63.5 kg
[~2017-10-02 20:11] MED LIST changes: +BUTALB-APAP-CA1 EACH PO; +COLACE 100 MG100 MG PO; +SENNA8.6 MG PO
[2017-10-02 20:18] VITALS: BP 145/102
[2017-10-02 21:03] LABS: ABSOLUTE NEUTROPHILS 2.6 thou/uL (1.4-8.2); HEMATOCRIT 38.8 % (42.0-52.0); HEMOGLOBIN 12.2 gm/dL (14.0-18.0); MCH 26.2 pg (26.0-34.0); RBC 4.64 mil/uL (4.50-6.00)
[2017-10-02 21:05] LABS: BASOPHILS 1.3 % (0.0-2.0); EOSINOPHILS 5.2 % (0.0-3.0); LYMPHOCYTES 35.6 % (24.0-44.0); MCHC 31.3 g/dL (28.0-37.0); MCV 83.7 fL (80.0-100.0); MONOCYTES 6.6 % (1.0-8.0); PLATELET COUNT 220 thou/uL (150-400); POLYS 51.3 % (36.0-66.0); RDW 18.5 % (10.5-14.5); WBC 5.1 thou/uL (4.0-11.0)
[2017-10-02 21:10] LABS: CALCIUM 8.9 mg/dL (8.5-10.1); CREATININE 0.9 mg/dL (0.7-1.3); POTASSIUM 5.1 mmol/L (3.5-5.1)
[2017-10-02 21:14] LABS: MANUAL DIFF NO
[2017-10-02 21:15] LABS: ALBUMIN 3.9 g/dL (3.4-5.0); DIRECT BILIRUBIN 0.1 mg/dL (<0.1-0.3); TOTAL BILIRUBIN 0.5 mg/dL (<0.1-1.0); TOTAL PROTEIN 7.2 g/dL (6.4-8.2)
[2017-10-02 21:35] LABS: URINE BILIRUBIN NEGATIVE (Negative); URINE BLOOD NEGATIVE (Negative); URINE COLOR YELLOW; URINE GLUCOSE-RANDOM* NEGATIVE (Negative); URINE KETONES NEGATIVE (Negative); URINE NITRITE NEGATIVE (Negative); URINE PROTEIN (DIPSTICK) NEGATIVE (Negative); URINE SPECIFIC GRAVITY 1.015 (1.005-1.035); URINE UROBILINOGEN 0.2 E.U./dl (0.2-1.0)
[2017-10-02 22:58] VITALS: BP 146/114
[2017-10-02 23:25] VITALS: BP 146/114
[2017-10-03 05:00] VITALS: BP 134/93
[2017-10-03 08:00] VITALS: BP 131/88
[2017-10-03 16:00] VITALS: BP 144/89
[2017-10-03 20:00] VITALS: BP 131/90
[2017-10-04 04:00] VITALS: BP 135/90
[2017-10-04 08:00] VITALS: BP 140/104
[2017-10-04 16:14] VITALS: BP 122/62
[2017-10-04 20:18] VITALS: BP 125/84
[2017-10-05 05:04] VITALS: BP 138/100
[2017-10-05 09:40] VITALS: BP 137/86
[2017-10-05 17:09] VITALS: BP 127/77
[2017-10-05 19:17] VITALS: BP 142/90
[2017-10-06 04:01] VITALS: BP 141/96
[2017-10-06 05:35] LABS: HEMATOCRIT 34.9 % (42.0-52.0); HEMOGLOBIN 10.9 gm/dL (14.0-18.0); MCHC 31.3 g/dL (28.0-37.0); MCV 83.1 fL (80.0-100.0); RBC 4.2 mil/uL (4.50-6.00); RDW 18.8 % (10.5-14.5); WBC 7.6 thou/uL (4.0-11.0)
[2017-10-06 05:51] LABS: CALCIUM 7.8 mg/dL (8.5-10.1); CREATININE 0.8 mg/dL (0.7-1.3); POTASSIUM 3.3 mmol/L (3.5-5.1)
[2017-10-06 07:18] VITALS: BP 147/73
[2017-10-06 10:30] VITALS: BP 147/73
== END 2017-10-06 13:00 | disposition home health service (06) ==
LOC: ER 20:11 → EROBS 22:30 → 4N 22:58
PROVIDERS: Family Medicine; Nurse Practitioner
DX: M13.851 Other specified arthritis, right hip (principal); R53.1 Weakness; R11.0 Nausea; K59.00 Constipation, unspecified; M48.00 Spinal stenosis, site unspecified; R51 Headache; M79.602 Pain in left arm

== ENCOUNTER 2018-03-18 00:08 | Emergency (ER) | payer OTHER ==
[~2018-03-18] VITALS: Ht 167.6 cm; Wt 63.5 kg
[2018-03-18 01:57] LABS: HEMATOCRIT 31.9 % (42.0-52.0); MCH 25.6 pg (26.0-34.0); MCHC 31.2 g/dL (28.0-37.0); PLATELET COUNT 214 thou/uL (150-400); RBC 3.89 mil/uL (4.50-6.00); RDW 19.3 % (10.5-14.5); WBC 5.4 thou/uL (4.0-11.0)
[2018-03-18 02:06] LABS: CALCIUM 8.5 mg/dL (8.5-10.1); MAGNESIUM 2.3 mg/dL (1.8-2.4); POTASSIUM 3.8 mmol/L (3.5-5.1)
[2018-03-18 02:56] LABS: ABSOLUTE NEUTROPHILS 2.3 thou/uL (1.4-8.2); ANISOCYTOSIS 2+; NUCLEATED RBCS 1 /100WBC
[2018-03-18 02:57] LABS: LARGE PLATELETS RARE; POLYCHROMASIA 1+
== END 2018-03-18 03:24 | disposition home or self-care (01) ==
LOC: ER 00:08
PROVIDERS: Emergency Medicine
DX: M62.838 Other muscle spasm (principal); I48.91 Unspecified atrial fibrillation; Z90.49 Acquired absence of other specified parts of digestive tract

== ENCOUNTER 2018-05-29 22:05 | Emergency (ER) | payer OTHER ==
[~2018-05-29] VITALS: Ht 167.6 cm; Wt 63.5 kg
--- NOTE | ~2018-05-29 | EKG ---
[place] [address] 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: RIVKAPau : 1930 Requested By: Praveena Urena Order Number: [id number] MD: Nicola James Measurements Intervals [place] Rate: 119 P: NC: QRS: 45 QRSD: 132 T: -16 QT: 333 QTc: 469 Interpretive Statements Atrial fibrillation with a rapid ventricular response RBBB Compared to ECG 05/15/2018 12:53:22 no significant change was found Electronically Signed On 05-31-2018 8:36:38 CDT by Nicola James [email or web address] <ELECTRONICALLY SIGNED> By: Nicola James MD, [facility] 05/31/18 0836 2322 21 Nicola James MD, FACC /EPI
[~2018-05-29 22:05] MED LIST changes: +ONDANSETRON HCL4 M2 PO; +VENTOLIN HFA 1818 GM INH; +XALATAN2.5 ML OPHTHALMIC
[2018-05-30] LABS: ABSOLUTE NEUTROPHILS 3.3 thou/uL (1.4-8.2); BASOPHILS 1.6 % (0.0-2.0); EOSINOPHILS 2.8 % (0.0-3.0); HEMATOCRIT 35.9 % (42.0-52.0); LYMPHOCYTES 31.8 % (24.0-44.0); MCH 24.8 pg (26.0-34.0); MCHC 30.8 g/dL (28.0-37.0); MCV 80.5 fL (80.0-100.0); MONOCYTES 11.1 % (1.0-8.0); PLATELET COUNT 324 thou/uL (150-400); POLYS 52.7 % (36.0-66.0); RBC 4.46 mil/uL (4.50-6.00); RDW 18.1 % (10.5-14.5); WBC 6.2 thou/uL (4.0-11.0)
[2018-05-30 00:08] LABS: ANION GAP 10 mmol/L (7-16); BUN 8 mg/dL (7-18); CHLORIDE 100 mmol/L (98-107); CO2 29 mmol/L (21-32); CREATININE 0.8 mg/dL (0.7-1.3); GLUCOSE 93 mg/dL (74-106); POTASSIUM 3.1 mmol/L (3.5-5.1); SODIUM 139 mmol/L (136-145)
[2018-05-30 00:16] LABS: ALBUMIN 3.7 g/dL (3.4-5.0); DIRECT BILIRUBIN 0.1 mg/dL (<0.1-0.3); LIPASE 166 U/L (73-393); SGOT 17 U/L (15-37); SGPT 18 U/L (30-65); TOTAL BILIRUBIN 0.4 mg/dL (<0.1-1.0); TOTAL PROTEIN 7.2 g/dL (6.4-8.2); TROPONIN-I <0.06 ng/mL (<0.06)
[2018-05-30 00:42] LABS: URINE BILIRUBIN NEGATIVE (Negative); URINE BLOOD NEGATIVE (Negative); URINE CLARITY CLEAR; URINE COLOR YELLOW; URINE GLUCOSE-RANDOM* NEGATIVE (Negative); URINE KETONES NEGATIVE (Negative); URINE LEUKOCYTES NEGATIVE (Negative); URINE NITRITE NEGATIVE (Negative); URINE PROTEIN (DIPSTICK) NEGATIVE (Negative); URINE SPECIFIC GRAVITY 1.015 (1.005-1.035); URINE UROBILINOGEN 0.2 E.U./dl (0.2-1.0)
[2018-05-30 00:43] LABS: ANISOCYTOSIS 2+; BURR CELLS OCCASIONAL; TARGET CELLS OCCASIONAL
== END 2018-05-30 03:43 | disposition home or self-care (01) ==
LOC: ER 22:05
PROVIDERS: Emergency Medicine
DX: K46.9 Unspecified abdominal hernia without obstruction or gangrene (principal); I48.91 Unspecified atrial fibrillation; Z90.49 Acquired absence of other specified parts of digestive tract

== ENCOUNTER 2018-10-23 19:13 | Inpatient (IN) | payer OTHER ==
[~2018-10-23] VITALS: Ht 167.6 cm; Wt 63.8 kg
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
[2018-10-23 19:14] VITALS: BP 123/95
[2018-10-23 20:26] LABS: MCV 82.6 fL (80.0-100.0)
[2018-10-23 20:27] LABS: ABSOLUTE NEUTROPHILS 1.8 thou/uL (1.4-8.2); BASOPHILS 0.9 % (0.0-2.0); EOSINOPHILS 4.8 % (0.0-3.0); HEMATOCRIT 33.9 % (42.0-52.0); HEMOGLOBIN 10.2 gm/dL (14.0-18.0); LYMPHOCYTES 50.7 % (24.0-44.0); MCH 24.9 pg (26.0-34.0); MCHC 30.1 g/dL (28.0-37.0); MONOCYTES 9.3 % (1.0-8.0); PLATELET COUNT 185 thou/uL (150-400); POLYS 34.3 % (36.0-66.0); RBC 4.11 mil/uL (4.50-6.00); RDW 21.4 % (10.5-14.5); WBC 5.4 thou/uL (4.0-11.0)
[2018-10-23 21:19] LABS: ANION GAP 8 mmol/L (7-16); BUN 10 mg/dL (7-18); CALCIUM 8.6 mg/dL (8.5-10.1); CHLORIDE 103 mmol/L (98-107); CO2 29 mmol/L (21-32); GLUCOSE 85 mg/dL (74-106); SODIUM 140 mmol/L (136-145); TROPONIN-I <0.06 ng/mL (<0.06)
--- NOTE | 2018-10-24 02:03 | EKG ---
[place] [address] [place] [address] ELECTROCARDIOGRAM REPORT Name: MARISELAENRIQUE SANDOVAL [facility]: [facility] [id number] Admission: 10/23/18 Attend Phys: Discharge: Date of : 30 Report #: [id number] THIS REPORT FOR: //name// 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
--- NOTE | 2018-10-24 08:30 | NUR ---
PT. MONEY COUNTED AND PROVIDED TO SECURITY PER HIS REQUEST.
--- NOTE | 2018-10-24 11:26 | NUR ---
ATTEMPTED TO CALL REPORT TO RECEIVING RN, UNABLE TO TAKE REPORT AT THIS TIME
[2018-10-24 11:47] VITALS: BP 126/87
[2018-10-24 12:00] VITALS: BP 120/88
--- NOTE | 2018-10-24 17:57 | NUR ---
PATIENT ORIENTED TO ROOM AND FACILITY ROUTINE INCLUDING MEAL TIMES, CALL LIGHT, TV CONTROL ETC. HE IS ALERT ORIENTED TO PLACE AND TIME BUT NOT DATE OR SITUATION. HE KNOWS HE IS HERE BECAUSE HE DOES NOT HAVE HEAT IN HIS HOUSE. RESTLESS AND CONFUSED AT TIMES. WILL CONT WITH PLAN OF CARE.
[2018-10-24 19:48] VITALS: BP 148/103
[2018-10-25 04:45] VITALS: BP 149/102
--- NOTE | 2018-10-25 06:35 | NUR ---
ASSUME CARE 1900. PT/VITALS STABLE. UP WITH ASSITANCE AND WALKER. ASSESSMENT CHARTED. AFIB ON MONITOR. CARDIZEM 240MG PO SCHEDULED. PLAN IS TO CONTINUE TO MANAGE HR AND AFIB. WILL CONTINUE TO MONITOR AND FOLLOW WITH POC
[2018-10-25 08:11] VITALS: BP 152/106
--- NOTE | 2018-10-25 18:26 | NUR ---
ASSESSMENT DOCUMENTED. PRN PAIN MED GIVEN WITH PARTIAL RELIEF. AFIB ON TELI. HR ABOVE 100'S. DR PURCELL NOTIFIED. NO NEW ORDERS GIVEN. PT RESTING IN BED AT THIS TIME. WILL CONTINUE TO MONITOR.
[2018-10-25 19:45] VITALS: BP 158/108
[2018-10-25 21:13] LABS: URINE BILIRUBIN NEGATIVE (Negative); URINE BLOOD NEGATIVE (Negative); URINE CLARITY CLEAR; URINE COLOR YELLOW; URINE GLUCOSE-RANDOM* NEGATIVE (Negative); URINE KETONES NEGATIVE (Negative); URINE LEUKOCYTES NEGATIVE (Negative); URINE NITRITE NEGATIVE (Negative); URINE PROTEIN (DIPSTICK) NEGATIVE (Negative); URINE SPECIFIC GRAVITY 1.015 (1.005-1.035); URINE UROBILINOGEN 0.2 E.U./dl (0.2-1.0)
--- NOTE | 2018-10-26 04:43 | NUR ---
1900, PT ALERT AND ORIENTED. GIVEN STOOL SOFTERERS AND LAXATIVES DURING THE DAY, PT HAD WATERY BM. 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 HR IN 120S EARLIER DURING THE SHIFT. DR PURCELL NOTIFIED. ORDER FOR CARDIZEM 5MG/HR WITH NO BOLUS GIVEN. WILL CONTINUE TO MONITOR.
[2018-10-26 04:45] VITALS: BP 143/98
[2018-10-26 08:14] VITALS: BP 149/93
[2018-10-26 09:13] LABS: HEMATOCRIT 34.7 % (42.0-52.0); HEMOGLOBIN 10.4 gm/dL (14.0-18.0); MCH 24.9 pg (26.0-34.0); MCHC 29.9 g/dL (28.0-37.0); MCV 83.1 fL (80.0-100.0); RBC 4.17 mil/uL (4.50-6.00); RDW 21.5 % (10.5-14.5); WBC 5.6 thou/uL (4.0-11.0)
[2018-10-26 09:25] LABS: CALCIUM 8.4 mg/dL (8.5-10.1); CREATININE 0.8 mg/dL (0.7-1.3); POTASSIUM 3.1 mmol/L (3.5-5.1)
[2018-10-26 11:56] VITALS: BP 138/90
--- NOTE | 2018-10-26 13:19 | NUR ---
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 He has all needs on one level in home and uses a walker. He has stair glide to basement but does no use very often. Patient has supportive neighbor Yessenia who assists with some transport and meals. He has MOW [phone] which casemgt called to alert patient is in hospital. Discussed skilled care with patient, he reports he needs to think this over. Left [facility] medicare list and discussed with patient.
--- NOTE | 2018-10-26 14:24 | NUR ---
FAXED REFERRAL TO [facility]. SPOKE WITH NOE IN ADM. SHE RECEIVED REFERRAL AND WILL REVIEW ANTICIPATE DC IN 1-2 DAYS. DCP TO FOLLOW.
[2018-10-26 15:33] VITALS: BP 141/102
[2018-10-26 20:15] VITALS: BP 146/74
--- NOTE | 2018-10-27 03:19 | NUR ---
ASSUMED CARE AT 1900. PT ALERT BUT FORGETFUL. PT HAD LOOSE WATERY STOOL PREVIOUS NIGHT AND YESTERDAY MORNING. PT WAS STILL CONCERENED ABOUT HIS BOWELS PT ON DAILY MIRALAX. C/O GENERALIZED PAIN, TRAMADOL PRN GIVEN. PT ANXIOUS ABOUT BEING DISCHARGED . WILL FOLLOW POC
[2018-10-27 04:45] VITALS: BP 133/89
[2018-10-27 08:33] VITALS: BP 137/101
[2018-10-27 08:48] LABS: CALCIUM 8.1 mg/dL (8.5-10.1); CREATININE 0.9 mg/dL (0.7-1.3); POTASSIUM 3.5 mmol/L (3.5-5.1)
[2018-10-27 13:15] VITALS: BP 123/84
--- NOTE | 2018-10-27 13:48 | NUR ---
spoke with patient regarding [facility] is accepting. He questions why not 5N reviewed acute care criteria, diagnosis and 3 hours of therapy. He reports he was confused yesterday and does not want [facility] he is interested in [facility]. Plan referral to [facility].
--- NOTE | 2018-10-27 15:50 | NUR ---
FAXED REFERRAL TO [facility] LEFT MSG WITH MEGAN IN ADM. THAT REFERRAL FAXED AND THAT PT. WAS SCHEDULED TO GO TO [facility] AND THEY ALREADY HAD AUTH. AND THEN DECIDED HE WOULD RATHER GO TO [facility]. [facility] TO FOLLOW.
[2018-10-27 17:03] VITALS: BP 114/83
--- NOTE | 2018-10-27 18:21 | NUR ---
PATIENT UP WITH STANDBY ASSIST USING WALKER & OXYGEN. CALLS FOR ASSIST. BED ALARM ON & CHAIR ALARM USED WHILE OUT OF BED. REFUSED SHOWER WITH OCCUPATIONAL THERAPY. PATIENT ENCOURAGED TO USE OWN STRENGTH FOR ADL'S. PATIENT REPORTS PAIN MANAGED WITH MEDS ORDERED. EDUCATION PROVIDED TO PATIENT ABOUT MODIFIED DIET WITH LOW SODIUM, REENFORCEMENT NEEDED. PATIENT FORGETFUL.
[2018-10-27 19:44] VITALS: BP 131/87
--- NOTE | 2018-10-28 01:46 | NUR ---
ASSESSMENT DOCUMENTED.PT BEEN RESTING IN NAD.A/OX4 W/FORGETFULNESS.VSS.AFIB W/RVR IN LOW 100S ON MONITOR.TRAMDOL GIVEN FOR GENERALIZED PAIN WITH RELIEF.REMAINS ON O2 AT 2LITERS PNC,SATS ADEQUATE.DEO LES ELEVATED D/T EDEMA.PT DENIES ANY NEEDS AT THIS TIME.POSSIBLE DISCHARGE TO REHAB FACILITY TODAY.
[2018-10-28 04:22] VITALS: BP 136/90
[2018-10-28 07:55] VITALS: BP 132/92
[2018-10-28] MEDS ORDERED: TRAMADOL 50 MG50 MG PO (07:58)
[2018-10-28 11:40] VITALS: BP 112/86
--- NOTE | 2018-10-28 14:42 | NUR ---
CM SNF can accept the pt pending ins auth. They have submitted request. Pt aware of possible dc today if auth rec'd. Chart copy in place. Care team updated.
--- NOTE | 2018-10-28 16:01 | NUR ---
JUST SPOKE WITH MEGAN IN ADM. AT SHE OBTAINED AUTH. FOR SKILLED STAY. FAXED DC ORDERS/SUMMARY TO FACILITY AND RECEIVED. TRANSPORT ARRANGED BY FACILITY VIA [employer] [facility] FOR [phone]. THERE IS NO FAMILY DOCUMENTED TO NOTIFY. UNIT NOTIFIED OF TIME OF TRANSPORT AND CHART COPY PER US. RN TO CALL REPORT TO [phone].
[2018-10-28 16:05] VITALS: BP 105/66
--- NOTE | 2018-10-28 18:49 | NUR ---
ASSUMED CARE OF PATIENT AT 0700. PATIENT VITALS STABLE. PATIENT VERY ANXIOUS OF DISCHARGE. ONE TIME DOSE OF ALPRAZOLAM GIVEN TO PATIENT AND TOLERATED WELL. PATIENT PARTICIPATED WITH PT/OT. PATIENT ATE WELL WITH GOOD APPETITE. PATIENT STATES THAT HE FEELS BETTER THAN HE DID ON ADMISSION. SECURITY CAME WITH THE PATIENT'S MONEY AND GAVE IT BACK TO THE PATIENT, MONEY HAD BEEN HELD SINCE ER STAY. RECEIPT IN CHART. REPORT CALLED TO SANDY AT [facility]. TRANSPORTATION ARRIVED AT 1800 AND CHART COPY SENT WITH TRANSPORTER.
== END 2018-10-28 18:15 | DRG 308 ==
LOC: ER 19:13 → EROBS 10-24 11:06 → 2N 10-24 11:06
PROVIDERS: Emergency Medicine; Student in an Organized Health Care Education/Training Program; ADMIT Family Medicine
DX: I48.91 Unspecified atrial fibrillation (principal); I50.23 Acute on chronic systolic (congestive) heart failure; H40.9 Unspecified glaucoma; T69.9XXA Effect of reduced temperature, unspecified, initial encounter; G62.9 Polyneuropathy, unspecified; K59.00 Constipation, unspecified; Z96.651 Presence of right artificial knee joint; Z90.49 Acquired absence of other specified parts of digestive tract; Z87.81 Personal history of (healed) traumatic fracture; Z79.899 Other long term (current) drug therapy; X31.XXXA Exposure to excessive natural cold, initial encounter
CPT/HCPCS: 10081

== ENCOUNTER 2018-11-10 19:28 | Emergency (ER) | payer OTHER ==
[~2018-11-10] VITALS: Ht 175.3 cm; Wt 63.5 kg
[~2018-11-10 19:28] MED LIST changes: +TRAMADOL 50 MG50 MG PO
[2018-11-10 20:38] LABS: HEMOGLOBIN 10.8 gm/dL (14.0-18.0)
[2018-11-10 20:41] LABS: HEMATOCRIT 34.7 % (42.0-52.0); MCH 25.1 pg (26.0-34.0); MCHC 31.1 g/dL (28.0-37.0); MCV 80.8 fL (80.0-100.0); PLATELET COUNT 295 thou/uL (150-400); RDW 20.8 % (10.5-14.5); WBC 6.5 thou/uL (4.0-11.0)
[2018-11-10 20:54] LABS: CALCIUM 8.2 mg/dL (8.5-10.1); CREATININE 0.9 mg/dL (0.7-1.3); POTASSIUM 3.6 mmol/L (3.5-5.1)
[2018-11-10 20:59] LABS: TOTAL BILIRUBIN 0.3 mg/dL (<0.1-1.0); TOTAL PROTEIN 6.5 g/dL (6.4-8.2)
[2018-11-10 21:06] LABS: ABSOLUTE NEUTROPHILS 3.4 thou/uL (1.4-8.2); ANISOCYTOSIS 1+; POLYCHROMASIA OCCASIONAL
[2018-11-10 21:07] LABS: POIKILOCYTOSIS 1+
[2018-11-10] MEDS ORDERED: TESSALON PERLE100 MG PO (21:38)
[2018-11-10] MEDS ORDERED: DOXYCYCLINE 10100 MG PO (21:38)
[2018-11-10 22:57] VITALS: BP 148/83
== END 2018-11-10 22:58 ==
LOC: ER 19:28
PROVIDERS: Physician Assistant
DX: J18.8 Other pneumonia, unspecified organism (principal); I48.91 Unspecified atrial fibrillation; J44.9 Chronic obstructive pulmonary disease, unspecified; M17.0 Bilateral primary osteoarthritis of knee; Z96.651 Presence of right artificial knee joint; Z90.49 Acquired absence of other specified parts of digestive tract

== ENCOUNTER 2018-12-17 03:00 | Emergency (ER) | payer OTHER ==
[~2018-12-17] VITALS: Ht 172.7 cm; Wt 63.5 kg
[~2018-12-17 03:00] MED LIST changes: +DOXYCYCLINE 10100 MG PO
[2018-12-17 04:45] VITALS: BP 145/63
[2018-12-17] MEDS ORDERED: ULTRAM 50MG TAB50 MG PO (04:51)
== END 2018-12-17 05:30 | disposition home or self-care (01) ==
LOC: ER 03:00
DX: S22.32XA Fracture of one rib, left side, initial encounter for closed fracture (principal); M17.0 Bilateral primary osteoarthritis of knee; I48.91 Unspecified atrial fibrillation; Z90.49 Acquired absence of other specified parts of digestive tract; W01.0XXA Fall on same level from slipping, tripping and stumbling without subsequent striking against object, initial encounter; Y92.000 Kitchen of unspecified non-institutional (private) residence as the place of occurrence of the external cause; Y93.89 Activity, other specified; Y99.8 Other external cause status

== ENCOUNTER 2019-01-06 15:34 | Emergency (ER) | payer OTHER ==
[~2019-01-06] VITALS: Ht 167.6 cm; Wt 63.5 kg
[~2019-01-06 15:34] MED LIST changes: +ULTRAM 50MG TAB50 MG PO
[2019-01-06 16:09] LABS: URINE BILIRUBIN NEGATIVE (Negative); URINE BLOOD NEGATIVE (Negative); URINE CLARITY CLEAR; URINE COLOR YELLOW; URINE GLUCOSE-RANDOM* NEGATIVE (Negative); URINE KETONES NEGATIVE (Negative); URINE LEUKOCYTES-REFLEX NEGATIVE (Negative); URINE NITRITE-REFLEX NEGATIVE (Negative); URINE PROTEIN (DIPSTICK) NEGATIVE (Negative); URINE SPECIFIC GRAVITY 1.015 (1.005-1.035); URINE UROBILINOGEN 0.2 E.U./dl (0.2-1.0)
[2019-01-06 16:18] LABS: AMP/METHAMP Negative (Negative); BARBITURATES POSITIVE (Negative); BENZODIAZEPINES Negative (Negative); COCAINE Negative (Negative); METHADONE Negative (Negative); OPIATES POSITIVE (Negative); PCP Negative (Negative)
[2019-01-06 16:40] LABS: RBC 3.98 mil/uL (4.50-6.00)
[2019-01-06 16:41] LABS: HEMATOCRIT 33.9 % (42.0-52.0); HEMOGLOBIN 10.5 gm/dL (14.0-18.0); MCH 26.3 pg (26.0-34.0); MCHC 30.9 g/dL (28.0-37.0); MCV 85.2 fL (80.0-100.0); RDW 20.9 % (10.5-14.5); WBC 6.3 thou/uL (4.0-11.0)
[2019-01-06 16:45] LABS: ANION GAP 9 mmol/L (7-16); BUN 11 mg/dL (7-18); CALCIUM 8.5 mg/dL (8.5-10.1); CHLORIDE 105 mmol/L (98-107); CO2 28 mmol/L (21-32); CREATININE 0.8 mg/dL (0.7-1.3); GLUCOSE 85 mg/dL (74-106); POTASSIUM 3.8 mmol/L (3.5-5.1); SODIUM 142 mmol/L (136-145)
[2019-01-06 16:53] LABS: TROPONIN-I <0.06 ng/mL (<0.06)
[2019-01-06 17:15] LABS: ABSOLUTE NEUTROPHILS 2.4 thou/uL (1.4-8.2); ANISOCYTOSIS 1+
[2019-01-06 17:16] LABS: POLYCHROMASIA OCCASIONAL
[2019-01-06 17:23] LABS: PLATELET COUNT 215 thou/uL (150-400)
[2019-01-06 18:16] VITALS: BP 119/83
--- NOTE | 2019-01-07 08:24 | EKG ---
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: : 1930 Requested By: Edilia Gambino Order Number: [id number] MD: Nicola James Measurements Intervals [place] Rate: 82 P: DC: QRS: 51 QRSD: 135 T: -4 QT: 371 QTc: 434 Interpretive Statements Atrial fibrillation Right bundle branch block Compared to ECG 10/23/2018 19:52:27 No significant changes Electronically Signed On 01-07-2019 8:24:32 CDT by Nicola James [email or web address] ��������������������������������������������� <ELECTRONICALLY SIGNED> ���������������������������������������� By: Nicola James MD, [facility] ��������������������������������������������� 01/07/19 0824 1603 1603 Nicola James MD, FACC /EPI
== END 2019-01-06 18:17 | disposition home or self-care (01) ==
LOC: ER 15:34
PROVIDERS: Student in an Organized Health Care Education/Training Program
DX: Z91.14 Patient's other noncompliance with medication regimen (principal); R41.82 Altered mental status, unspecified; I48.91 Unspecified atrial fibrillation; Z90.49 Acquired absence of other specified parts of digestive tract; M13.862 Other specified arthritis, left knee; M13.861 Other specified arthritis, right knee

== ENCOUNTER 2019-03-05 03:45 | Emergency (ER) | payer OTHER ==
[~2019-03-05] VITALS: Ht 167.6 cm; Wt 63.5 kg
[2019-03-05] MEDS ORDERED: BUTALB-APAP-CA1 EACH PO (03:52)
[2019-03-05 05:46] VITALS: BP 125/80
== END 2019-03-05 05:49 | disposition home or self-care (01) ==
LOC: ER 03:45
DX: M25.562 Pain in left knee (principal); M25.532 Pain in left wrist; I48.91 Unspecified atrial fibrillation; M13.862 Other specified arthritis, left knee; M13.861 Other specified arthritis, right knee; W18.39XA Other fall on same level, initial encounter; Y93.89 Activity, other specified; Y92.89 Other specified places as the place of occurrence of the external cause; Y99.8 Other external cause status

== ENCOUNTER 2019-03-19 11:48 | Emergency (ER) | payer OTHER ==
[~2019-03-19] VITALS: Ht 172.7 cm; Wt 59.0 kg
[2019-03-19 13:50] LABS: HEMATOCRIT 30.1 % (42.0-52.0); HEMOGLOBIN 9.3 gm/dL (14.0-18.0); MCH 26.4 pg (26.0-34.0); MCV 85.4 fL (80.0-100.0); PLATELET COUNT 223 thou/uL (150-400); RBC 3.53 mil/uL (4.50-6.00); RDW 18.3 % (10.5-14.5)
[2019-03-19 13:56] LABS: CALCIUM 8.4 mg/dL (8.5-10.1); CREATININE 0.8 mg/dL (0.7-1.3); POTASSIUM 3.6 mmol/L (3.5-5.1)
[2019-03-19 14:02] LABS: ALBUMIN 3.4 g/dL (3.4-5.0); TOTAL BILIRUBIN 0.3 mg/dL (<0.1-1.0); TOTAL PROTEIN 6.4 g/dL (6.4-8.2)
[2019-03-19 14:16] LABS: ABSOLUTE NEUTROPHILS 2.5 thou/uL (1.4-8.2)
[2019-03-19 14:17] LABS: ANISOCYTOSIS 1+
[2019-03-19 14:30] VITALS: BP 109/76
--- NOTE | 2019-03-20 09:25 | EKG ---
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: [id number] : 1930 Requested By: Neida Herring Order Number: [id number] MD: Nicola James Measurements Intervals [place] Rate: 82 P: [place]: QRS: 52 QRSD: 134 T: -9 QT: 394 QTc: 461 Interpretive Statements Atrial fibrillation Right bundle branch block Baseline wander in lead(s) V2 Compared to ECG 01/06/2019 16:03:51 No significant changes Electronically Signed On 03-20-2019 9:25:40 CDT by Nicola James [email or web address] ��������������������������������������������� <ELECTRONICALLY SIGNED> ���������������������������������������� By: Nicola James MD, [facility] ��������������������������������������������� 03/20/19 0925 18 Nicola James MD, [facility] /EPI
== END 2019-03-19 14:45 | disposition home or self-care (01) ==
LOC: ER 11:48
PROVIDERS: Physician Assistant
DX: R06.02 Shortness of breath (principal); M25.532 Pain in left wrist; I48.91 Unspecified atrial fibrillation; M17.0 Bilateral primary osteoarthritis of knee; Z90.49 Acquired absence of other specified parts of digestive tract; Z79.899 Other long term (current) drug therapy

== ENCOUNTER 2019-03-25 19:34 | Emergency (ER) | payer OTHER ==
[~2019-03-25] VITALS: Ht 167.6 cm; Wt 63.5 kg
[2019-03-25 21:03] LABS: ABSOLUTE NEUTROPHILS 3.6 thou/uL (1.4-8.2); BASOPHILS 1.3 % (0.0-2.0); EOSINOPHILS 8.7 % (0.0-3.0); HEMATOCRIT 31.3 % (42.0-52.0); HEMOGLOBIN 9.7 gm/dL (14.0-18.0); LYMPHOCYTES 27.3 % (24.0-44.0); MCH 26.2 pg (26.0-34.0); MCHC 30.9 g/dL (28.0-37.0); MCV 84.9 fL (80.0-100.0); PLATELET COUNT 227 thou/uL (150-400); POLYS 54.7 % (36.0-66.0); RBC 3.69 mil/uL (4.50-6.00); RDW 18.8 % (10.5-14.5); WBC 6.6 thou/uL (4.0-11.0)
[2019-03-25 21:16] LABS: CALCIUM 8.5 mg/dL (8.5-10.1); CREATININE 0.8 mg/dL (0.7-1.3); POTASSIUM 3.6 mmol/L (3.5-5.1)
[2019-03-25 21:20] LABS: ALBUMIN 3.6 g/dL (3.4-5.0); DIRECT BILIRUBIN 0.1 mg/dL (<0.1-0.3); TOTAL BILIRUBIN 0.3 mg/dL (<0.1-1.0)
[2019-03-25 22:15] VITALS: BP 108/84
== END 2019-03-25 22:15 | disposition home or self-care (01) ==
LOC: ER 19:34
PROVIDERS: Nurse Practitioner
DX: S60.212A Contusion of left wrist, initial encounter (principal); S09.93XA Unspecified injury of face, initial encounter; I48.91 Unspecified atrial fibrillation; M17.0 Bilateral primary osteoarthritis of knee; Z90.49 Acquired absence of other specified parts of digestive tract; Z96.651 Presence of right artificial knee joint; W18.09XA Striking against other object with subsequent fall, initial encounter; Y93.89 Activity, other specified; Y92.009 Unspecified place in unspecified non-institutional (private) residence as the place of occurrence of the external cause; Y99.8 Other external cause status

== ENCOUNTER 2019-03-27 14:25 | Emergency (ER) | payer OTHER ==
[~2019-03-27] VITALS: Ht 170.2 cm; Wt 63.5 kg
[2019-03-27 15:51] LABS: ABSOLUTE NEUTROPHILS 2.7 thou/uL (1.4-8.2); BASOPHILS 1.2 % (0.0-2.0); EOSINOPHILS 5.9 % (0.0-3.0); HEMATOCRIT 31.7 % (42.0-52.0); HEMOGLOBIN 9.8 gm/dL (14.0-18.0); LYMPHOCYTES 26.9 % (24.0-44.0); MCHC 30.9 g/dL (28.0-37.0); MCV 84.1 fL (80.0-100.0); MONOCYTES 11.3 % (1.0-8.0); PLATELET COUNT 239 thou/uL (150-400); POLYS 54.7 % (36.0-66.0); RBC 3.78 mil/uL (4.50-6.00); RDW 18.6 % (10.5-14.5); WBC 4.9 thou/uL (4.0-11.0)
[2019-03-27 15:58] LABS: ANION GAP 10 mmol/L (7-16); BUN 8 mg/dL (7-18); CALCIUM 8.5 mg/dL (8.5-10.1); CHLORIDE 107 mmol/L (98-107); CO2 26 mmol/L (21-32); CREATININE 0.7 mg/dL (0.7-1.3); GLUCOSE 106 mg/dL (74-106); POTASSIUM 3.5 mmol/L (3.5-5.1); SODIUM 143 mmol/L (136-145)
[2019-03-27 16:06] LABS: TROPONIN-I <0.06 ng/mL (<0.06)
[2019-03-27 16:16] LABS: ANISOCYTOSIS 2+
[2019-03-27 16:23] LABS: OVALOCYTES FEW
[2019-03-27 17:00] VITALS: BP 127/74
--- NOTE | 2019-03-28 07:44 | EKG ---
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 : 1930 Requested By: Richard Leung Order Number: [id number] MD: Nicola James Measurements Intervals [place] Rate: 98 P: CA: QRS: 51 QRSD: 136 T: -13 QT: 365 QTc: 467 Interpretive Statements Atrial fibrillation Early R-wave progression Nonspecific ST segment abnormality Compared to ECG 03/19/2019 12:19:16 No significant changes Electronically Signed On 03-28-2019 7:43:54 CDT by Nicola James [email or web address] ��������������������������������������������� <ELECTRONICALLY SIGNED> ���������������������������������������� By: Nicola James MD, [facility] ��������������������������������������������� 03/28/19 0743 1458 1458 Nicola James MD, FACC /EPI
== END 2019-03-27 17:00 | disposition home or self-care (01) ==
LOC: ER 14:25
PROVIDERS: Emergency Medicine
DX: R06.00 Dyspnea, unspecified (principal); R06.02 Shortness of breath; R05 Cough; M79.89 Other specified soft tissue disorders; I48.91 Unspecified atrial fibrillation; G89.29 Other chronic pain; M17.0 Bilateral primary osteoarthritis of knee; Z90.49 Acquired absence of other specified parts of digestive tract

== ENCOUNTER 2019-04-19 16:55 | Emergency (ER) | payer OTHER ==
[~2019-04-19] VITALS: Ht 167.6 cm; Wt 63.5 kg
[2019-04-19 18:16] VITALS: BP 132/73
== END 2019-04-19 18:17 | disposition home or self-care (01) ==
LOC: ER 16:55
DX: M25.562 Pain in left knee (principal); G89.29 Other chronic pain; I48.91 Unspecified atrial fibrillation; M17.0 Bilateral primary osteoarthritis of knee; Z96.651 Presence of right artificial knee joint; Z90.49 Acquired absence of other specified parts of digestive tract

== ENCOUNTER 2019-05-18 15:57 | Emergency (ER) | payer OTHER ==
[~2019-05-18] VITALS: Ht 167.6 cm; Wt 63.5 kg
[2019-05-18 16:08] VITALS: BP 127/76
[2019-05-18 17:05] LABS: HEMATOCRIT 32.7 % (42.0-52.0); MCHC 30.6 g/dL (28.0-37.0); MCV 81.6 fL (80.0-100.0); PLATELET COUNT 231 thou/uL (150-400); RBC 4.01 mil/uL (4.50-6.00); RDW 17.9 % (10.5-14.5); WBC 4.6 thou/uL (4.0-11.0)
[2019-05-18 17:10] LABS: ANION GAP 9 mmol/L (7-16); BUN 6 mg/dL (7-18); CHLORIDE 102 mmol/L (98-107); CO2 28 mmol/L (21-32); CREATININE 0.8 mg/dL (0.7-1.3); GLUCOSE 103 mg/dL (74-106); POTASSIUM 3.2 mmol/L (3.5-5.1); SODIUM 139 mmol/L (136-145)
[2019-05-18 17:19] LABS: TROPONIN-I <0.06 ng/mL (<0.06)
[2019-05-18 17:26] LABS: ABSOLUTE NEUTROPHILS 2.8 thou/uL (1.4-8.2); ANISOCYTOSIS 2+; POLYCHROMASIA OCCASIONAL
[2019-05-18 18:21] LABS: URINE BILIRUBIN NEGATIVE (Negative); URINE BLOOD NEGATIVE (Negative); URINE CLARITY CLEAR; URINE COLOR YELLOW; URINE GLUCOSE-RANDOM* NEGATIVE (Negative); URINE KETONES NEGATIVE (Negative); URINE LEUKOCYTES-REFLEX NEGATIVE (Negative); URINE NITRITE-REFLEX NEGATIVE (Negative); URINE PROTEIN (DIPSTICK) TRACE (Negative); URINE SPECIFIC GRAVITY 1.015 (1.005-1.035); URINE UROBILINOGEN 0.2 E.U./dl (0.2-1.0)
[2019-05-18 18:58] VITALS: BP 128/101
--- NOTE | 2019-05-19 08:14 | EKG ---
[place] [address] [place] [address] ELECTROCARDIOGRAM REPORT Name: ENRIQUE ANTONIO [facility]: [facility] [id number] Admission: 05/18/19 Attend Phys: Discharge: 05/18/19 Date of : 30 Report #: [id number] THIS REPORT FOR: //name// [facility] ED Test Date: 2019-05-18 Test Time: 17:05:13 Pat Name: ENRIQUE ANTONIO Department: Room: 419 Gender: M Social Service Liaison: yony davenport rn : 1930 Requested By: Ishan Veliz Order Number: [id number] MD: Nicola James Measurements Intervals [place] Rate: 99 P: MD: QRS: 70 QRSD: 131 T: QT: 374 QTc: 480 Interpretive Statements Atrial fibrillation Right bundle branch block Compared to ECG 03/27/2019 14:58:40 Right bundle-branch block now present Electronically Signed On 05-19-2019 8:14:30 CDT by Nicola James [email or web address] <ELECTRONICALLY SIGNED> By: Nicola James MD, [facility] 05/19/19 0814 1705 1705 Nicola James MD, FACC /EPI
== END 2019-05-18 18:58 | disposition still patient (30) ==
LOC: ER 15:57 → EROBS 18:31 → ER 18:31 → 4E 18:58 → EROBS 19:15 → 4E 19:15
PROVIDERS: Emergency Medicine
DX: M25.432 Effusion, left wrist (principal); M25.532 Pain in left wrist; R53.1 Weakness; I48.91 Unspecified atrial fibrillation; M17.0 Bilateral primary osteoarthritis of knee; I50.9 Heart failure, unspecified; Z96.651 Presence of right artificial knee joint; Z90.49 Acquired absence of other specified parts of digestive tract; W18.39XA Other fall on same level, initial encounter; Y92.89 Other specified places as the place of occurrence of the external cause; Y93.89 Activity, other specified; Y99.8 Other external cause status

== ENCOUNTER 2019-07-08 17:49 | Emergency (ER) | payer OTHER ==
[~2019-07-08] VITALS: Ht 167.6 cm; Wt 63.5 kg
[2019-07-08 17:55] VITALS: BP 123/81
== END 2019-07-08 19:06 | disposition home or self-care (01) ==
LOC: ER 17:49
DX: Z23 Encounter for immunization (principal); I48.91 Unspecified atrial fibrillation; M17.0 Bilateral primary osteoarthritis of knee; Z98.890 Other specified postprocedural states; Z90.49 Acquired absence of other specified parts of digestive tract; Z96.651 Presence of right artificial knee joint

== ENCOUNTER 2019-08-09 01:37 | Emergency (ER) | payer OTHER ==
[~2019-08-09] VITALS: Ht 167.6 cm; Wt 63.5 kg
[2019-08-09 02:45] LABS: ANION GAP 9 mmol/L (7-16); BUN 11 mg/dL (7-18); CALCIUM 8.7 mg/dL (8.5-10.1); CHLORIDE 102 mmol/L (98-107); CO2 26 mmol/L (21-32); GLUCOSE 92 mg/dL (74-106); SODIUM 137 mmol/L (136-145)
[2019-08-09 02:54] LABS: MCH 25.5 pg (26.0-34.0); TROPONIN-I <0.06 ng/mL (<0.06); WBC 5.3 thou/uL (4.0-11.0)
[2019-08-09 02:57] LABS: HEMATOCRIT 28.8 % (42.0-52.0); HEMOGLOBIN 8.8 gm/dL (14.0-18.0); MCHC 30.6 g/dL (28.0-37.0); MCV 83.4 fL (80.0-100.0); PLATELET COUNT 238 thou/uL (150-400); RBC 3.46 mil/uL (4.50-6.00); RDW 19.6 % (10.5-14.5)
[2019-08-09 03:33] LABS: ABSOLUTE NEUTROPHILS 3.3 thou/uL (1.4-8.2)
[2019-08-09 03:34] LABS: LARGE PLATELETS FEW; PLATELET ESTIMATE NORMAL; POLYCHROMASIA 1+; SCHISTOCYTES 1+
[2019-08-09 03:35] LABS: ANISOCYTOSIS 2+; POIKILOCYTOSIS 2+
[2019-08-09 03:53] LABS: URINE BILIRUBIN NEGATIVE (Negative); URINE BLOOD NEGATIVE (Negative); URINE CLARITY CLEAR; URINE COLOR YELLOW; URINE GLUCOSE-RANDOM* NEGATIVE (Negative); URINE KETONES TRACE (Negative); URINE LEUKOCYTES-REFLEX TRACE (Negative); URINE NITRITE-REFLEX NEGATIVE (Negative); URINE PROTEIN (DIPSTICK) 1+ (Negative); URINE SPECIFIC GRAVITY 1.025 (1.005-1.035); URINE UROBILINOGEN 0.2 E.U./dl (0.2-1.0)
[2019-08-09 04:19] LABS: HYALINE CASTS 4-10 Moderate /LPF (None Seen); MUCUS 0-3 Light strn/LPF (None Seen); SQUAMOUS None Seen /LPF (0-3)
[2019-08-09 04:20] LABS: BACTERIA-REFLEX None Seen /HPF (None Seen); CRYSTALS None Seen /LPF (None Seen); URINE RBC 0-2 Rare /HPF (0-2); URINE WBC-REFLEX 6-15 Few /HPF (0-5)
[2019-08-09 05:28] VITALS: BP 127/79
--- NOTE | 2019-08-09 08:38 | EKG ---
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: Product Coordinator: : 1930 Requested By: Roxie Bejarano Order Number: [id number] MD: Nicola James Measurements Intervals [place] Rate: 88 P: ID: QRS: 60 QRSD: 130 T: -58 QT: 369 QTc: 447 Interpretive Statements Atrial fibrillation Right bundle branch block Compared to ECG 05/18/2019 17:05:13 No significant changes Electronically Signed On 08-09-2019 8:38:08 CDT by Nicola James [email or web address] <ELECTRONICALLY SIGNED> By: Nicola James MD, [facility] 08/09/19 0838 0155 0155 Nicola James MD, FACC /EPI
== END 2019-08-09 05:30 | disposition home or self-care (01) ==
LOC: ER 01:37
PROVIDERS: Emergency Medicine
DX: R10.31 Right lower quadrant pain (principal); S31.809D Unspecified open wound of unspecified buttock, subsequent encounter; R05 Cough; I48.91 Unspecified atrial fibrillation; M17.0 Bilateral primary osteoarthritis of knee; Z90.49 Acquired absence of other specified parts of digestive tract; W18.39XD Other fall on same level, subsequent encounter

== ENCOUNTER 2019-08-09 06:12 | Inpatient (IN) | payer OTHER ==
[~2019-08-09] VITALS: Ht 167.6 cm; Wt 73.1 kg
[2019-08-09 06:35] VITALS: BP 135/83
[2019-08-09 09:15] VITALS: BP 134/92
[2019-08-09 12:52] VITALS: BP 148/86
[2019-08-09 19:47] VITALS: BP 147/99
--- NOTE | 2019-08-09 20:30 | NUR ---
Admitted from the ER due to abdominal pain. Transferred to bed safely. A+Ox3-4, SOKAOGON- no hearing aids noted. On NPO- Verified with Dr Dee, to keep pt NPO until Dr Martin sees pt. Dr Martin informed re: consult. Admission assessment and history done. Falls risk- falls bundle in place. On O2 at 1lpm via nasal cannula- as per pt he uses O2 at 1lpm via NC at home as needed. Able to use urinal to pass urine. No complaints of pain noted upon admission. No nausea, no vomiting and no abdominal pain noted. As per Dr Martin- he already saw pt from ER and pt can eat and drink from his standpoint, no surgical plans as of the moment- pt on low sodium diet. With bilateral leg edema noted- kept elevated. Dr Dee informed that pt is poor historian and unable to do his med rec, he is unable to recall meds and tried calling his caregiver but no call back- Dr Dee called back and said he'll review pt's meds, PRN meds ordered for the night and to start NS at 100cc/hr- clinic licensed practical nurse nurse to start IVF. Pt complained of rash on his back- clinic licensed practical nurse nurse informed to check/ take photo. To continue monitoring patient, to continue admission care on patient. OT/PT Evaluation ordered as per Dr Dee, possible discharge tomorrow.
[2019-08-10 00:09] VITALS: BP 135/87
--- NOTE | 2019-08-10 04:58 | NUR ---
ASSUMED CARE OF PT AT 1900HRS. PT IS AOX4 AND LETS NEEDS BE KNOWN. FALL PRECAUTION IN PLACE. HOME MEDS SENT TO PHARMACY. WALLET SENT TO SECURITY. PT WAS ABLE TO GET COMFORTABLE AND SLEEP PART OF THE SHIFT. O2 VIA NC AT 2L CONTINUED. PT DID NOT COMPLAIN OF PAIN OR NAUSEA THIS SHIFT. VSS AND NO S/S OF ACUTE DISTRESS. WILL CONTINUE TO MONITOR.
[2019-08-10 07:28] VITALS: BP 141/82
--- NOTE | 2019-08-10 11:18 | NUR ---
WOUND CARE NOTE; stage 2 pressure injury sacrum, blanchable, no drainage, recommend zguard and border foam dressing daily. 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
[2019-08-10 13:58] LABS: HEMOGLOBIN 10.3 gm/dL (14.0-18.0); MCH 25.2 pg (26.0-34.0); MCHC 30.3 g/dL (28.0-37.0); MCV 83.3 fL (80.0-100.0); RBC 4.07 mil/uL (4.50-6.00); RDW 19.8 % (10.5-14.5); WBC 5.7 thou/uL (4.0-11.0)
[2019-08-10 14:07] LABS: CALCIUM 8.4 mg/dL (8.5-10.1); CREATININE 0.9 mg/dL (0.7-1.3); POTASSIUM 3.2 mmol/L (3.5-5.1)
--- NOTE | 2019-08-10 14:32 | NUR ---
PT ADMITTED RELATED TO ABDOMINAL PAIN. CM REVIEWED CHART AND SPOKE WITH CARE TEAM. CM MET WITH PT AT BEDSIDE THIS DAY. PT IS A&O X4. CM ROLE INTRODUCED. PT INDICATED HE LIVES ALONE WITH 1 STEP TO ENTER AND NO STEPS INSIDE. 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 PT INDICATED HE HAD HH IN THE PAST AND CHART INDICATED [facility]. PT INIDCATED HIS NEIGHOR REYNALDO ASSISTS HIM IN HIS HOME AND THAT SHE VISITS DAILY. PT INDICATED HE PLANS TO RETURN HOME ONCE MEDICALLY STABLE. CM TO FOLLOW INDICATED WITH DC PLANNING.
[2019-08-10 16:40] VITALS: BP 132/80
--- NOTE | 2019-08-10 20:00 | NUR ---
PT HAS SACRAL WOUND THAT WAS CHANGED BY WOUND CARE NURSE RYAN TODAY. NEW WOUND CARE ORDERS IN [facility]. LOW AIR LOSS PUMP ORDERED BY WOUND NURSE AND PLACED ON PT'S BED/MATTRESS TODAY. PT IS ABLE TO MOVE AND TURN HIMSELF IN BED. PT GOES BACK AND FORTH FROM BED TO CHAIR THROUGHOUT DAY SHIFT. PT APPEARS TO BE VERY ANXIOUS AND CONTINOUSLY CALLS OUT FOR NURSE. PT IS ROUNDED ON FREQUENTLY AND PT CONTINUES TO CALL OUT AND WANTS NURSE ONLY TO ANSWER CALL LIGHT.
[2019-08-10 20:06] VITALS: BP 139/84
--- NOTE | 2019-08-11 04:20 | NUR ---
Patient progressing towards outcome goals. Vital signs stable. Denies abdominal pain. Good bowel movement after laxatives. Good pain control with Hydrocodone/Fentanyl. IVfluids infusing.
[2019-08-11 07:30] VITALS: BP 144/89
--- NOTE | 2019-08-11 12:24 | NUR ---
WOUND CARE F/U sacral wound healing, scant drainage, recommend to cont w/ same tx, encouraged pt to turn more, off loading, cooperative w/ care,drsg change done w/ director of medical staff services, see process intervention for wound details
[2019-08-11 13:21] VITALS: BP 144/89
--- NOTE | 2019-08-11 13:34 | NUR ---
Nutrition: Assessed due to RD screening, identified pressure wounds per chart. Pt here for abdominal pain, abdominal wall hernia. H&P mentions HTN, COPD. Per documentation in EMR, pt with stage 2 sacral pressure wound (healing stages per latest daily wound care note). He is discharging home today. DC orders in. Pt reports weighing 140#, but bedscale this admit states 161#. Unsure if accurate? as pt also weighed 140# per 10/28/18. Either way, pt either at a stable weight, or weight gain. He has a neighbor across the street who he describes as his "residential living assistant" who comes and fixes him meals. He eats 2 meals/day (breakfast, dinner), no lunch, but snacks often. Explained protein importance and food sources to pt to help given wounds. He confirms eating lots of the protein foods described. Denied further nutrition intervention.
[2019-08-11 13:50] VITALS: BP 144/89
--- NOTE | 2019-08-11 13:52 | NUR ---
PHYSICIAN INDICATED THAT PT IS MEDICALLY STABLE TO DC HOME THIS DAY. REFERRAL HAS BEEN SENT TO [facility] FOR NURSING AND AID. AWAITING RESPONSE IF THEY CAN ACCEPT PT. PT INDICATED THAT HE NEEDS TRANSPORT ARRANGED HOME. CM TO ARRANGE [facility] .
[2019-08-11 14:11] VITALS: BP 144/89
--- NOTE | 2019-08-11 14:22 | NUR ---
FAXED REFERRAL TO [facility] SPOKE WITH GIULIANO IN INTAKE AND SHE RECEIVED REFERRAL AND CAN ACCEPT. FAXED DC ORDERS/SUMMARY RECEIVED CONFIRMATION AND THE WILL NOTIIFY PT TIME OF VISITS.
--- NOTE | 2019-08-11 14:36 | NUR ---
[facility] CAN ACCEPT PT FOR SERVICES. [facility] ARRANGED FOR [id number]. NO OTHER CM INTERVENTION INDICATED. CASE CLOSED.
--- NOTE | 2019-08-11 19:39 | NUR ---
PATIENT VERY ANXIOUS ALL DAY. CALLING THE DESK CONSTANTLY. ALSO CALLING THE PREPARATORY TECHNICIAN. THIS RN HAD TO EXPLAIN CARE PLAN TO PATIENT OVER AND OVER. PATIENT FORGETFUL. DENIED PAIN. DISCHARGED HOME WITH HOME HEALTH IN STABLE CONDITION.
== END 2019-08-11 17:43 | disposition home health service (06) | DRG 683 ==
LOC: ER 06:12 → 4W 06:18 → EROBS 06:18 → 4W 11:22
PROVIDERS: ADMIT Family Medicine
DX: N17.9 Acute kidney failure, unspecified (principal); R18.8 Other ascites; K74.60 Unspecified cirrhosis of liver; K40.90 Unilateral inguinal hernia, without obstruction or gangrene, not specified as recurrent; I48.91 Unspecified atrial fibrillation; M17.0 Bilateral primary osteoarthritis of knee; I10 Essential (primary) hypertension; Z96.651 Presence of right artificial knee joint; J44.9 Chronic obstructive pulmonary disease, unspecified; K59.00 Constipation, unspecified; Z90.49 Acquired absence of other specified parts of digestive tract; Z87.81 Personal history of (healed) traumatic fracture; Z79.899 Other long term (current) drug therapy
CPT/HCPCS: 10040

== ENCOUNTER 2019-09-10 12:06 | Inpatient (IN) | payer OTHER ==
[~2019-09-10] VITALS: Ht 167.6 cm; Wt 50.5 kg
[2019-09-10 12:09] VITALS: BP 98/63
[2019-09-10 13:10] LABS: HEMOGLOBIN 7.4 gm/dL (14.0-18.0); MCH 24.9 pg (26.0-34.0); MCHC 29.4 g/dL (28.0-37.0); MCV 84.6 fL (80.0-100.0); PLATELET COUNT 268 thou/uL (150-400); RBC 2.96 mil/uL (4.50-6.00); RDW 18.7 % (10.5-14.5); WBC 5.2 thou/uL (4.0-11.0)
[2019-09-10 13:19] LABS: ANION GAP 12 mmol/L (7-16); BUN 5 mg/dL (7-18); CALCIUM 8.3 mg/dL (8.5-10.1); CHLORIDE 104 mmol/L (98-107); CO2 24 mmol/L (21-32); CREATININE 0.9 mg/dL (0.7-1.3); GLUCOSE 109 mg/dL (74-106); POTASSIUM 3.5 mmol/L (3.5-5.1); SODIUM 140 mmol/L (136-145)
[2019-09-10 13:29] LABS: ALBUMIN 3.2 g/dL (3.4-5.0); SGOT 24 U/L (15-37); SGPT 18 U/L (30-65); TOTAL BILIRUBIN 0.5 mg/dL (<0.1-1.0); TOTAL PROTEIN 6.4 g/dL (6.4-8.2); TROPONIN-I <0.06 ng/mL (<0.06)
[2019-09-10 13:50] LABS: ABSOLUTE NEUTROPHILS 3.6 thou/uL (1.4-8.2); ANISOCYTOSIS 2+; BURR CELLS OCCASIONAL; SCHISTOCYTES OCCASIONAL; TARGET CELLS 1+
[2019-09-10 15:06] VITALS: BP 108/69
[2019-09-10 15:53] VITALS: BP 119/76
--- NOTE | 2019-09-10 18:34 | NUR ---
ASSUMED CARE AT 1300, SHIFT ASSESSMENT DONE, MEDS GIVEN, VSS. ADMISSION DONE. HAD 3 LOOSE STOOLS THIS SHIFT. AFIB, HIGH HR. DR REYNOLDS TOLD THIS NURSE TO GIVE PT ORAL DILTIZEM AND OBSERVE THE PT'S HR. BP IS LOW, DR WILKERSON DOES NOT WANT TO START THE DRIP BP IS LOW. DENIES PAIN, NAUSEA, VOMITING. WILL CONTINUE TO ASSESS AND ASSIST WITH ADLs NEEDED.
[2019-09-10 19:39] LABS: HEMATOCRIT 27.5 % (42.0-52.0); HEMOGLOBIN 8.1 gm/dL (14.0-18.0)
[2019-09-10 19:40] VITALS: BP 113/69
--- NOTE | 2019-09-10 21:53 | EKG ---
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
[2019-09-11] VITALS (7 sets, daily range): BP systolic 108–130; BP diastolic 67–85
[2019-09-11 05:02] LABS: HEMATOCRIT 24.8 % (42.0-52.0); HEMOGLOBIN 7.3 gm/dL (14.0-18.0); MCH 24.5 pg (26.0-34.0); MCHC 29.3 g/dL (28.0-37.0); MCV 83.5 fL (80.0-100.0); RBC 2.97 mil/uL (4.50-6.00); RDW 19.3 % (10.5-14.5); WBC 3.3 thou/uL (4.0-11.0)
[2019-09-11 05:03] LABS: CALCIUM 8.2 mg/dL (8.5-10.1); MAGNESIUM 1.7 mg/dL (1.8-2.4); PHOSPHORUS 2.8 mg/dL (2.5-4.9); POTASSIUM 3.7 mmol/L (3.5-5.1)
--- NOTE | 2019-09-11 07:29 | NUR ---
RECEIVED PT AROUND 2300 FRO TRANSFER OF CARE. PT CALLED OUT THROUGHOUT THE NIGHT NUMEROUS TIMES FOR PAIN MEDICATIONS. SEE EMAR FOR DOSES GIVEN.
[2019-09-11 10:53] LABS: % SATURATION 3 % (20-39); IRON 13 ug/dL (65-175); TIBC 406 ug/dL (250-450)
[2019-09-11 12:48] LABS: ABSOLUTE RETIC COUNT 0.0449 10^6/uL; OBSERVED RETIC COUNT 1.5 % (0.6-2.6)
[2019-09-11 13:06] LABS: TSH 1.153 uIU/mL (0.358-3.740)
--- NOTE | 2019-09-11 14:18 | NUR ---
PT HAS BEEN ANXIOUS AND AGITATED ALL DAY, CALLING NURSING STAFF ALL DAY LONG FOR SILLY ISSUES LIKE WANTING TO TALK TO THE DOCTOR ABOUT PERSONAL ISSUES, BUT THIS WAS MENTIONED TO THE DR, HE SAID HE WAS JUST MAKING A CONVERSATION. ASKED THE DR FOR ANXIETY MEDICATION, WILL AWAIT FOR ORDER.
--- NOTE | 2019-09-11 17:32 | NUR ---
ASSUMED CARE AT 0700, SHIFT ASSESSMENT DONE, MEDS GIVEN, VSS. DENIES PAIN, NAUSEA, VOMITING. CARDIOLOGY CONSULT TODAY, WAS SEEN BY DR SPEARS. ORDER RECEIVED FOR 1 UNIT OF BLOOD AND IV IRON, ADMINISTERED. STARTD ON IV ANTIBIOITCS. PT REMAINS ON 2LNC, CALLS FREQUENTLY. LEGS ARE STILL EDEMATOUS, 2+ PITTING EDEMA. AFIB RATE CONTROLLED ON THE TELE MONITOR. WILL CONTINUE TO ASSESS AND ASSIST WITH ADLs NEEDED.
[2019-09-12 04:12] LABS: HEMATOCRIT 29.7 % (42.0-52.0); HEMOGLOBIN 9.1 gm/dL (14.0-18.0); MCH 25.4 pg (26.0-34.0); MCHC 30.6 g/dL (28.0-37.0); RBC 3.58 mil/uL (4.50-6.00); RDW 18.1 % (10.5-14.5); WBC 5.9 thou/uL (4.0-11.0)
[2019-09-12 04:15] VITALS: BP 127/86
[2019-09-12 04:25] LABS: CALCIUM 8.1 mg/dL (8.5-10.1); CREATININE 0.9 mg/dL (0.7-1.3); PHOSPHORUS 3.2 mg/dL (2.5-4.9); POTASSIUM 3.6 mmol/L (3.5-5.1)
--- NOTE | 2019-09-12 05:15 | NUR ---
ASSESSMENT DOCUMENTED.PT BEEN RESTING IN NO ACUTE DISTRESS.VSS.A/OX3,SPOKANE,ANXIOUS AT TIMES AND CALLING FREQUENTLY.PAIN MEDS GIVEN FOR BACK PAIN. W/SOME RELIEF PER PATIENT.AFIB ON MONITOR WITH TACHYCARDIA,PRN LOPRESSOR WAS GIVEN WITH IMPROVEMENT IN HR.ON O2 AT 2LITERS PNC,SATS ADEQUATE.SOA W/ACTIVITIES.CONTINUE TO DIURESE WITH LASIX,DEO LES EDEMATOUS,ELEVATED.UP IN THE RECYCLINER AT THIS TIME.ANXIETY MED GIVEN.NO OTHER CONCERNS AT THIS TIME.POC IS TO CONTINUES TO MONITOR PER POC.
--- NOTE | 2019-09-12 08:16 | EKG ---
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
[2019-09-12 08:25] VITALS: BP 124/78
--- NOTE | 2019-09-12 10:23 | NUR ---
WOUND CARE CONSULT pt alert, cooperative, assessed wound w/ staff radiation therapist MARYLIN, stage 2 pressure injury sacral area, no drainage, pink viable tissue present, encouraged pt to keep off area as much as possible, but he states uncomfortable to lay on side, will order low air loss pump for bed RECOMMENDATIONS; ZGUARD TO SACRAL WOUND DAILY AND PRN, LOW AIR LOSS PUMP TO BED, KEEP OFF AREA MUCH POSSIBLE, SURGICAL SERVICES ASSISTANT INFORMED
[2019-09-12 12:07] VITALS: BP 132/93
--- NOTE | 2019-09-12 12:07 | NUR ---
PATIENT SEEN THIS DATE BY DR. BECERRA FOR CONSULT. PHYSICAL AND OCCUPATIONAL THERAPY HAVE NOT SEEN PATIENT YET FOR EVALUATION. PATIENT MAY BE A POSSIBLE CANDIDATE FOR REHAB, BUT WOULD LIKE TO RETURN HOME IF POSSIBLE. WILL AWAIT THERAPY EVALUATION TO SEE PATIENT'S FUNCTIONAL LEVEL. FOLLOWING. THANK YOU FOR THIS REFERRAL.
--- NOTE | 2019-09-12 14:25 | 2DMMODE ---
[facility] [address] [place] [address] 2 D/M-MODE ECHOCARDIOGRAM Name: ENRIQUE ANTONIO Room #: 208-P [facility] IN ..#: [id number] Admission: 09/10/19 Attend Phys: Ramon Dee, Discharge: Date of : 30 Report #: [id number] THIS REPORT FOR: //name// APPROVED REPORT Study performed: 09/12/2019 12:13:48 EXAM: Comprehensive 2D, Doppler, and color-flow Echocardiogram Patient Location: Bedside Room #: 208 Status: routine BSA: 1.77 HR: 90 bpm BP: 127/86 mmHg Rhythm: Atrial Fibrillation Other Information Study Quality: Adequate Risk Factors: Cardiac Risk Factors: HTN Indications Congestive Heart Failure COPD Dyspnea 2D Dimensions IVSd: 11.80 (7-11mm) LVOT Diam: 18.00 (18-24mm) LVDd: 43.47 mm PWd: 10.91 (7-11mm) Ascending Ao: 33.26 (22-36mm) LVDs: 31.96 (25-40mm) Aortic Root: 33.98 mm LV Single Plane 4CH: 59.89 % LV Single Plane 2CH: 55.56 % Biplane EF: 57.8 % Volumes Left Atrial Volume (Systole) Single Plane 4CH: 84.14 mL Single Plane 2CH: 87.15 mL LA ESV Index: 52.00 mL/m2 Aortic Valve AoV Peak Demetrius.: 1.21 m/s AO Peak Gr.: 6.44 mmHg LVOT Max P.58 mmHg [facility] [address] [email or web address] [address] 2 D/M-MODE ECHOCARDIOGRAM Name: ENRIQUE ANTONIO Room #: 208-P [facility] IN [facility]#: [id number] Admission: 09/10/19 Attend Phys: Ramon Dee, Discharge: Date of : 30 Report #: [id number] LVOT Max V: 0.80 m/s LINDA Vmax: 1.74 cm2 Pulmonary Valve PV Peak Demetrius.: 0.64 m/s PV Peak Gr.: 1.66 mmHg MI End Vmax: 1.15 m/s Tricuspid Valve TR Peak Demetrius.: 2.12 m/s RAP Estimate: 15.00 mmHg TR Peak Gr.: 18.42 mmHg PA Pressure: 48.00 mmHg Left Ventricle The left ventricle is normal size. There is normal LV segmental wall motion. Mild concentric left ventricular hypertrophy. The left ventricular systolic function is normal. The left ventricular ejection fraction is within the normal range. LVEF is 55-60%. This study is not technically sufficient to allow evaluation of the LV diastolic function due to atrial fibrillation. Right Ventricle Right ventricle is severely dilated. Right ventricle is hypokinetic. Atria Left atrium is severely dilated. Right atrium is severely dilated. Aortic Valve The aortic valve is sclerotic. No aortic regurgitation is present. There is no aortic valvular stenosis. Mitral Valve There is mitral annular calcification. Mild mitral regurgitation. No evidence of mitral valve stenosis. Tricuspid Valve The tricuspid valve is normal in structure. Severe tricuspid regurgitation. Pulmonary artery pressure is 50 mmHg. Pulmonic Valve The pulmonary valve is normal in structure. Mild pulmonic regurgitation. Great Vessels The aortic root is normal in size. The ascending aorta is normal in [facility] [address] [place] [address] 2 D/M-MODE ECHOCARDIOGRAM Name: ANTONIOENRIQUEDIANA Room #: 208-P ADM IN M.R.#: [id number] Admission: 09/10/19 Attend Phys: Ramon Dee, Discharge: Date of : 30 Report #: [id number] size. IVC is dilated and collapses <50% with inspiration. Pericardium There is no pericardial effusion. <Conclusion> The left ventricular systolic function is normal. There is normal LV segmental wall motion. LVEF is 55-60%. Right ventricle is severely dilated, RV hypokinesis. Both atria are severely dilated. The aortic valve is sclerotic. No aortic regurgitation or stenosis. There is mitral annular calcification. Mild mitral regurgitation. Severe tricuspid regurgitation. Pulmonary artery pressure of 50 mmHg. There is no pericardial effusion. <ELECTRONICALLY SIGNED> By: Nicola James MD, [facility] 09/12/19 2647 1425 142 Nicola James MD, [facility] /INF
--- NOTE | 2019-09-12 15:47 | NUR ---
ASSESSMENT: CM REVIEWED CHART AND SPOKE WITH ATTENDING. PT WAS ADMITTED FROM HOME WHERE HE LIVES IN A HOUSE ALONE. PT REPORTS THAT HIS LONG TIME NEIGHBOR REYNALDO LIVES ACROSS THE STREET AND CHECKS ON HIM OFTEN AND HELPS MAKE HIM MEALS. PT REPORTS HE HAS ONE STEP TO ENTER THE HOME AND NO STEPS ONCE INSIDE. PT USES A WALKER FOR AMBULATION AND IS INDEPENDENT WITH ADLS. PT HAS HAD [facility] IN THE PAST. CM LEFT VM WITH [facility] TO SEE IF HE IS STILL CURRENT AND WAITING TO HEAR BACK. PT/OT IS ORDERED FOR PATIENT AND HE WAS VARIANCED TODAY BUT IS GETTING LYMPHEDEMA TREATMENT. PT IS HOPEFUL TO RETURN BACK HOME AT DISCHARGE. CM WILL CONTINUE TO FOLLOW TO ASSIST NEEDED PT WILL LIKELY NEEDING HH/SNF AT DISCHARGE.
[2019-09-12 16:19] VITALS: BP 120/70
--- NOTE | 2019-09-12 17:11 | NUR ---
RECEIVED PT'S CARE AROUND 0700; PT. ON CHAIR; AOX4; DURING ASSESMENT NO C/O PAIN; AM MEDICATION GIVEN; NEW IV STARTED; D/C IV; STARTED NEW IV ON R. FA; WOUND CARE PERFOMED WITH WOUND NURSE AROUND 1000; PT. REQUESTED TO APPLIE AGAIN OVER BUTTOCKS; EDUCATED ABOUT APPLIED ONE HOUR AGO; PT. UPSET; ST. "IT IS MY BUTT"; "IF YOUR NOT GOING TO DO ANYTHING GET OUT OF HERE" WHILE POINTING WITH FINGER THE DOOR; ST. TAKES "FOUR PILLS" AT HOME THAT IS STOOL SOFTNER WITH LAXATIVE; MIRALAX SCHEDULED; EDUCATED ABOUT STOOL SOFTNER SCHEDULED AT NIGHT; UPSET; REFUSED EDUCATION; ST. "THE DOCTOR JUST TOLD ME HE IS GOING TO SCHEDULE MY "FOUR PILLS"; PER PHYSICIAN OK FOR PT. TO HAVE MIRALAX SCHEDULED; REFUSED; ST. "IF TOMORROW I DO NOT HAVE MY OPERATION IT IS GOING TO BE ON YOU"; PT. SCHEDULE TO HAVE EGD; REFUSED EDUCATION; LATER ON THE DAY REQUESTED MIRALAX WITH CARDIOLOGY REHAB NURSE & PT; MIRALAX GIVEN; UP ON CHAIR FOR MEALS; DURING THE AFTERNOON CALM; COOPERATIVE; USING THE URINAL THROUGH THE DAY; EDUCATED ABOUT BRINGING LEGS UP ON CHAIR; NEEDS TO BE REMAINED; AFIB ON THE MONITOR; ABOVE 100s; NO C/O CP; MONITORING; ASSESSMENT CHARGED; FOLLOWING POC; WILL PASS ON REPORT;
[2019-09-12 21:29] VITALS: BP 136/69
--- NOTE | 2019-09-13 00:46 | NUR ---
ASSESSMENT DOCUMENTED.PT BEEN PLEASANTLY CONFUSED TO PLACE AND SITUATION,REFUSING CARES AND REFUSING MEDS BUT EVENTUALLY TAKES AFTER A LONG TIME CONSUMING CONVERSATION AND REPEATING INFORMATION OVER AND OVER.PATIENT SPENT MOST OF THE EVENING IN THE CHAIR,HAS STREET CLOTHES ON AND REFUSED TO WEAR GOWN ON,PT ASKING FREQUENTLY FOR HIS MONEY BUT HE KNOWS IT IS WITH SECURITY. PT WAS FOUND BY ONE OF THE NURSES WITH HOME MEDS-PAIN MEDS,GETTIING READY TO TAKE THEM FOR HEADACHE,MEDS WERE TAKEN TO PHARMACY AND PT MEDICATED WITH MEDICATION HERE THAT ARE ORDERED.PT DENIES HAVING ANY OTHER MEDS OR TAKEN ANY OTHER MEDICATIONS.ASSISTED TO BED.DEO LEGS WRAPPED WITH LILIANA BANDAGES.ELEVATED.O2 AT 2LITERS PNC.NO OTHER CONCERNS AT THIS TIME.WILL CONT TO MONITOR PER POC.
[2019-09-13 04:38] LABS: HEMATOCRIT 30.9 % (42.0-52.0); HEMOGLOBIN 9.4 gm/dL (14.0-18.0); MCH 25.2 pg (26.0-34.0); MCHC 30.3 g/dL (28.0-37.0); MCV 83.3 fL (80.0-100.0); RBC 3.71 mil/uL (4.50-6.00); RDW 17.9 % (10.5-14.5); WBC 14.1 thou/uL (4.0-11.0)
[2019-09-13 04:57] LABS: CALCIUM 8.5 mg/dL (8.5-10.1); CREATININE 0.9 mg/dL (0.7-1.3); MAGNESIUM 1.9 mg/dL (1.8-2.4); PHOSPHORUS 2.6 mg/dL (2.5-4.9); POTASSIUM 3.4 mmol/L (3.5-5.1)
[2019-09-13 05:35] VITALS: BP 136/81
[2019-09-13 08:12] VITALS: BP 135/82
--- NOTE | 2019-09-13 13:34 | NUR ---
I have reviewed the documentation by GEMMA NICOLE from 09/13/19 to 09/13/19 and I concur with it. DIONE NAVARRO
[2019-09-13 16:49] VITALS: BP 145/94
[2019-09-14 00:32] VITALS: BP 159/94
[2019-09-14 05:04] VITALS: BP 136/84
[2019-09-14 05:38] LABS: CREATININE 0.7 mg/dL (0.7-1.3); POTASSIUM 3.3 mmol/L (3.5-5.1)
--- NOTE | 2019-09-14 08:17 | NUR ---
PATIENTS CARES ASSUMED AT SHIFT CHANGE. PATIENT WAS ASSESSED AND MEDS WERE PASSED. PATIENT HAD SEVERAL BED CHANGES DUE TO INCONTENENT OF URINE. AN ORDER FOR A TAO WAS OBTAINED DUE TO FREQUENTLY. FROM DR. PURCELL. PLUS AN ORDER TO SEND A UA TO LAB. THIS WAS DONE APPROX 0645. PATIENT WAS DOING A BOWEL PREP AND HAD NOT HAD A BM. HOURLY ROUNDS WERE MADE. BED ALARM IS ON. THE BED IS IN A LOW AND LOCKED POSITION.
[2019-09-14 08:51] VITALS: BP 127/90
[2019-09-14 10:37] LABS: URINE BILIRUBIN NEGATIVE (Negative); URINE BLOOD TRACE (Negative); URINE CLARITY CLEAR; URINE COLOR YELLOW; URINE GLUCOSE-RANDOM* NEGATIVE (Negative); URINE KETONES NEGATIVE (Negative); URINE LEUKOCYTES-REFLEX NEGATIVE (Negative); URINE NITRITE-REFLEX NEGATIVE (Negative); URINE PROTEIN (DIPSTICK) NEGATIVE (Negative); URINE UROBILINOGEN 0.2 E.U./dl (0.2-1.0)
[2019-09-14 12:33] VITALS: BP 122/78
--- NOTE | 2019-09-14 15:43 | NUR ---
sp with Yessenia from [facility] who reports patient is on their [facility] pallative care program. She met with patient and reports he is agreeable to Hospice at home. Patient worked with therapy and weak. Patient reports he is agreeable to [facility] were he can rec acute rehab therapy to return home. patient has been at [facility] in past and does not want skilled care at all, he would rather return home if he cannot go to [facility]. Patient would benefit from daily phys visits and continuity of care on acute rehab. Patient also refuseing skilled care at this time.
[2019-09-14 16:56] VITALS: BP 124/77
--- NOTE | 2019-09-14 16:57 | NUR ---
ASSUMED CARE 0700. ALERTX4 WITH FORGETFULNESS. PAIN IN SACRUM TREATED WITH ZINC GUARD PER ORDER AND Q2H TURNS TOLERATED. CONTINUE TO OFFER BOWEL PREP PER ORDER FOR TOMORROW COLONOSCOPY PT ONLY ABLE TO DRINK 240ML AT THIS TIME. NURSE PROVIDED EDUCATION ON BOWEL PREP. REMAINS ON CLEAR LIQUIDS DIET. 1 MODERATE STOOL AND 1 LARGE STOOL NOTED AT THIS TIME. FALL PRECAUTIONS IN PLACE. CALLS FOR ASSISTANCE.
[2019-09-14 20:39] VITALS: BP 141/64
[2019-09-14 23:10] LABS: ADENOVIRUS Negative (Negative); INFLUENZA A Negative (Negative); INFLUENZA B Negative (Negative); METAPNEUMOVIRUS Negative (Negative); PARAINFLUENZA 1 Negative (Negative); PARAINFLUENZA 2 Negative (Negative); PARAINFLUENZA 3 Negative (Negative); RHINOVIRUS Negative (Negative); RSV A Negative (Negative); RSV B Negative (Negative)
[2019-09-15 05:10] VITALS: BP 132/78
[2019-09-15 05:21] VITALS: BP 132/78
[2019-09-15 08:05] VITALS: BP 96/61
--- NOTE | 2019-09-15 09:35 | NUR ---
PATIENT HAS NOW HAD BOTH PT AND OT EVALUATIONS. ED HENRY AND INSPECTION ENGINEER REVIEWED INFORMATION. PATIENT WOULD NOT BE ABLE TO TOLERATE 3 HOURS OF THERAPY A DAY. SKILLED IS A BETTER OPTION FOR PATIENT AT THIS TIME. RAILROAD CAR INSPECTOR INFORMED. THANK YOU FOR THIS REFERRAL.
[2019-09-15 10:16] LABS: CALCIUM 9.2 mg/dL (8.5-10.1)
[2019-09-15 11:25] VITALS: BP 129/75
[2019-09-15 12:41] LABS: HEMATOCRIT 37.6 % (42.0-52.0)
[2019-09-15 12:44] LABS: HEMOGLOBIN 11.6 gm/dL (14.0-18.0)
--- NOTE | 2019-09-15 15:43 | NUR ---
[facility] declined pt d/t poor tolerance with recommendations for SNF. Pt getting colonoscopy today. Will f/u in to discuss options. Will check with [facility] to see if they could accept for snf stay as he has been there before.
[2019-09-15 15:50] VITALS: BP 94/60
--- NOTE | 2019-09-15 16:36 | NUR ---
FAXED REFERRAL TO [facility] SPOKE WITH MEGAN IN ADM SHE RECEIVED REFERRAL AND WILL REVIEW. DP TO FOLLOW
--- NOTE | 2019-09-15 18:41 | NUR ---
ASSUMED CARE PT SHIFT CHANGE. ASSESSMENT CHARTED. MEDS GIVEN PER MAR. PT ALERT AND ORIENTED UPON ASSESSMENTS, LATER IN EVENING PT BECAME MORE FORGETFUL/CONFUSED. PT SUPPOSED TO HAVE COLONSCOPY THIS AM, BOWELS STILL NOT CLEAR, TAP WATER ENEMA ORDERED X2 AND GIVEN, STOOL REMAINED WATERY AND BROWN. ANOTHER BOWEL PREP ORDERED PER PHYSICIAN. ENCOURAGED PT TO DRINK BOWEL PREP SEVERAL TIMES, SAYS "I JUST CAN'T DRINK THAT ANYMORE" WHEN EDUCATED ON WHY PT NEEDS TO DRINK, PT CONTINUES TO REFUSE. WILL CONTINUE TO OFFER FREQUENTLY. PT CURRENTLY IN ROOM RECEIVING SCHEDULED BREATHING TREATMENT. TAO CATH INTACT AND DRAINING APPROPRIATELY- PT FORGETS HE HAS TAO, REMINDED TO URINATE IF NEEDED TAO WILL CATCH URINE. CONTINUING TO MONITOR PT, ASSESSING NEEDS/CONCERNS.
--- NOTE | 2019-09-15 20:06 | PATH ---
[facility] [place] [address] PATHOLOGY RPT PROCEDURE Name: ENRIQUE PAEZ Room #: 208-P ADM IN M.R.#: [id number] Admission: 09/10/19 Date of : 30 Discharge: Report #: [id number] Path Case #: [id number] [facility] Accession Number: [id number] . 01 Material submitted: . PART A: small bowel - BX OF SMALL BOWEL PART B: stomach - BX OF GASTRITIS . 01 Clinical history: . Pre-op diagnosis: Anemia Post-op diagnosis: Hiatal hernia, esophagitis, gastritis A: R/O celiac disease . 02 Diagnosis: A. Small bowel mucosa, rule out celiac disease, endoscopic biopsy: - No diagnostic abnormalities present. - Negative for villous blunting or increase in intraepithelial lymphocytes. . B. Gastric mucosa, gastritis, endoscopic biopsy: - Moderate reactive gastropathy with scattered rare foci of mild active gastritis. - Negative for intestinal metaplasia or atrophy. - Negative for Helicobacter pylori (properly controlled immunohistochemical stain performed). . (IUV:claude; 09/15/2019) MBR 09/15/2019 1234 Local . 02 Electronically signed: . Lizbeth Kaiser MD, Pathologist NPI- [id number] . 01 Gross description: . A. The specimen is received in formalin, labeled "Enrique Paez, small bowel biopsy, R/O celiac". Received are five segments of pale lozada soft tissue ranging in size from 0.2 to 0.3 cm in maximum dimensions. The specimen is submitted entirely in cassette A1. . B. The specimen is received in formalin, labeled "Enrique Paez, biopsy of gastritis". Received are two segments of pale lozada soft tissue ranging in size from 0.5 to 0.7 cm in maximum dimensions. The specimen is submitted entirely in cassette B1. (CAA; 09/14/2019) QA/[facility] 09/14/2019 1142 Local . 02 Pathologist provided ICD-10: [address] [address] PATHOLOGY RPT PROCEDURE Name: ENRIQUE PAEZ Room #: 208-P [facility] IN .R.#: [id number] Admission: 09/10/19 Date of : 30 Discharge: Report #: [id number] Path Case #: [id number] K31.9, K29.70 . 02 CPT . [id number], [id number], [id number] Specimen Comment: A courtesy copy of this report has been sent to [phone], [phone] Specimen Comment: [id number] Specimen Comment: Report sent to and Performed at: [address], [place] [id number] MD Kristian Bradford MD Phone: [phone] Performed at: [address] [id number] MD Lizbeth Kaiser MD Phone: [phone]
[2019-09-15 20:35] VITALS: BP 115/73
[2019-09-16 04:45] VITALS: BP 133/91
--- NOTE | 2019-09-16 04:53 | NUR ---
ASSUMED CARE 1900. PT ON BOWEL PREP FOR COLONOSCOPY SCHDULED THIS AM. PT DECLINED TO TAKE GOLITELY . GI , DR HOPKINS NOTIFIED. PT WANTED MIRALAX IN PLAIN WATER. MIXED MIRALAX IN WATER BUT PATIENT COULD STILL NOT TAKE ENOUGH TO CLEAR HIS BOWEL. DR. HOPKINS WAS NOTIFIED AGAIN, AND A TAP WATER ENEMA WAS ORDERED AND ADMINISTED. PT STILL HAD SMALL MUCUSY WITH BROWNISH SEDIMETS. NO MORE BOWELS AT THIS TIME. PT REPORT HE DOES NOT FEEL THE URGE TO MOVE HIS BOWEL. PT HAD EARLIER IN THE DAY RECEIVED 2 EMEMAS. WILL CONTINUE MONITOR.
[2019-09-16 08:05] VITALS: BP 119/56
--- NOTE | 2019-09-16 09:46 | NUR ---
WOUND CARE F/U assess wound w/ staff counsel AIRAM, pressure injury stage 2 sacral area. less catherine, healing, encouraged pt to keep off area as much as possible, maria del rosario dodson applied RECOMMENDATIONS; cont current maria del rosario cárdenas daily and prn, off loading pressure relief, cont low air loss pump to bed, staff counsel informed
--- NOTE | 2019-09-16 12:06 | PATH ---
[facility] [address] [place] [address] PATHOLOGY RPT PROCEDURE Name: ENRIQUE ANTONIO Room #: 208-P ADM IN M.R.#: [id number] Admission: 09/10/19 Date of : 30 Discharge: Report #: [id number] Path Case #: [id number] Note [facility] Accession Number: [id number] TESTS RESULT FLAG UNITS REF RANGE LAB Clinician Provided Cytology Information No. of containers..01 Other (Miscellaneous) Source: 01 BRUSHING OF CANDIDAS DIAGNOSIS: 02 BRUSHING OF CANDIDAS NEGATIVE FOR MALIGNANT CELLS. FUNGAL ORGANISMS ARE PRESENT. REACTIVE CELLULAR CHANGES NOTED. NUMEROUS YEAST FORMS, BUDDING HYPHAE AND PSEUDOHYPHAE COMPATIBLE WITH SUZETTE PRESENT. Pathologist ICD10: 02 B37.81 Signed out by: 02 Lizbeth Kaiser MD, Pathologist NPI- [id number] Performed by: Adrienne Ibarra, Belt Cleaner ([facility]) Gross description: 01 2 ML, COLORLESS, CLEAR /LCS 10/11/1840 0000 Local FLAG LEGEND: L-Low Normal,H-High Normal,LL-Alert Low,HH-Alert High <-Panic Low,>-Panic High,A-Abnormal,AA-Critical Abnormal Performed at: [address] [place] [address] Kristian Bradford MD, [address] [address] Lizbeth Kaiser MD, Specimen Comment: A duplicate report has been generated due to demographic updates. Performed at: [address], [place], [place] [id number] MD Kristian Bradford MD Phone: [phone]
--- NOTE | 2019-09-16 13:39 | NUR ---
[facility] NOT ACCEPTING OF PATIENT. DISCUSSED WITH PATIENT OPTIONS HE IS AGREEABLE TO [facility]. WILL NEED TO REC AUTH FOR POST ACUTE CARE WILL NOT REC ON WEEKEND.
--- NOTE | 2019-09-16 14:49 | NUR ---
SENT REFERRAL TO [facility]. RECEIVED CONFIRMATION, CALLED AND THEY RECEIVED REFERRAL FAX.
[2019-09-16 15:00] VITALS: BP 115/59
--- NOTE | 2019-09-16 17:14 | P ---
[facility] [place] [address] [address] [place] [address] PROCEDURE REPORT Name: ENRIQUE ANTONIO Room #: 208-P [facility] IN M.R.#: [id number] Admission: 09/10/19 Attend Phys: Ramon Dee MD Discharge: Date of : 30 Report #: [id number] THIS REPORT FOR: //name// CC: Ramon Dee INPATIENT UPPER ENDOSCOPY REPORT BRIEF HISTORY: The patient is an 89-year-old male with evidence of iron deficiency anemia. He does have a history of esophageal stricture and esophagitis. I believe he has also had ulcer disease as well. PREOPERATIVE DIAGNOSIS: Iron deficiency anemia. POSTOPERATIVE DIAGNOSES: 1. Grade A erosive esophagitis. 2. Small hiatus hernia. 3. Diffuse gastritis. 4. 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 MEDICATIONS: Deep sedation with propofol per Anesthesia. SPECIMENS: 1. Small bowel biopsies to rule out celiac disease. 2. Biopsies of gastritis. 3. Brushings of esophagus. ESTIMATED BLOOD LOSS: 3 mL. PROCEDURES: EGD with biopsy and brushing. FINDINGS: Prior to propofol sedation, procedure of upper endoscopy was discussed with the patient as well as potential risks and its complications. He indicates he understands and desires to proceed. DESCRIPTION OF PROCEDURE: With the patient in left lateral decubitus position, the Olympus video endoscope was inserted in the cervical esophagus under direct vision without difficulty. Examination of this organ through its entire length revealed normal esophageal mucosa down the squamocolumnar junction. Squamocolumnar junction was inspected and there was noted to be single erosion consistent with grade A erosive esophagitis. In addition, there was whitish material in the mid esophagus, raising the possibility of Giselle esophagitis. Scope was advanced and a small 2 cm sliding type hiatus hernia was encountered. The mucosa on the hernia is unremarkable. There was no evidence of bleeding. Scope was advanced in the stomach, which was examined on end view as well as retroflexed views. There was mild diffuse erythema and there was some flattening of the gastric mucosa. Multiple biopsies were obtained to evaluate for gastritis. However, there was no evidence of ulcers or bleeding lesions, [facility] [address] [place] [address] PROCEDURE REPORT Name: ENRIQUE ANTONIO Room #: 208-P [facility] IN M.R.#: [id number] Admission: 09/10/19 Attend Phys: Ramon Dee MD Discharge: Date of : 30 Report #: [id number] AVMs were not seen. Upon retroflexion, no mass lesions were seen. Pylorus was unremarkable. Duodenal bulb was noted to be somewhat deformed, likely from previous ulcer disease, but the mucosa was intact. There was no evidence of ulcers or bleeding. Duodenal sweep down the third portion was noted to be unremarkable. At that point, the scope was slowly withdrawn and careful circumferential views were obtained. Multiple small bowel biopsies were obtained to evaluate for celiac disease. In addition, brushings were obtained of the esophagus as well. The patient tolerated the procedure well. DISPOSITION: I do not see an obvious bleeding lesion. We talked yesterday about a colonoscopy. The patient was not sure he wanted to proceed with colonoscopy. I looked through the office records and do not find evidence at least in our records or the hospital records of a colonoscopy within the past 15 years. A colonoscopy would be indicated. We will discuss further with the patient. We will follow up on biopsies. <ELECTRONICALLY SIGNED> By: Enrique Beck MD 09/16/19 1714 [id number] [id number] Enrique Beck MD /nt
--- NOTE | 2019-09-16 17:15 | NUR ---
I have reviewed the documentation by GEMMA NICOLE from 09/16/19 to 09/16/19 and I concur with it. DIONE NAVARRO
--- NOTE | 2019-09-16 17:23 | NUR ---
PT CARE ASSUMED APPROX 0700. ASSESSMENTS CHARTED. PT DENIES PAIN AND SOA. VSS. TOLERATING POC. REFUSING TURNS MOST OF SHIFT. DENIES QUESTIONS OR CONCERNS REGARDING POC. PT REFUSING AREAS OF POC. EDUCATED BUT CONTINUES TO REFUSE. NO DISTRESS NOTED.
[2019-09-16 19:56] VITALS: BP 119/74
[2019-09-16 20:00] VITALS: BP 153/69
[2019-09-17 04:00] VITALS: BP 132/81
--- NOTE | 2019-09-17 04:15 | NUR ---
PT SLEPT WELL OVERNIGHT. REPORTS GENERALIZED PAIN. VITALS STABLE. POINT OF CARE ADHERED TO. REMAINS ON O2 NC. DENIES CHEST PAIN, NAUSEA OR VOMITING. WILL CONTINUE WITH PLAN OF CARE AND ENCOURAGE TURNS MUCH POSSIBLE.
[2019-09-17 08:00] VITALS: BP 127/82
[2019-09-17 11:50] VITALS: BP 128/92
[2019-09-17 15:10] VITALS: BP 125/66
--- NOTE | 2019-09-17 16:56 | NUR ---
PT CARE ASSUMED APPROX 0700. ASSESSMENT CHARTED. PT WEANED TO RA. DENIES PAIN AND SOA. VSS. TURNING Q2HRS AND PRN. TOLERATING POC. PT'S SISTER AT BEDSIDE THIS SHIFT AND RECEIVED CLINICAL UPDATE. SHE DENIES QUESTIONS OR CONCERNS REGARDING POC. PT PO INTAKE POOR. ENCOURAGING PT TO EAT. PT REFUSING NEEDLE STICKS. EDUCATED. FAMILY AND DR ESTRADA ARE AWARE. NO DISTRESS NOTED.
--- NOTE | 2019-09-17 16:59 | NUR ---
PT CARE ASSUMED APPROX 0700. ASSESSMENT CHARTED. DENIES SOA. REPORTS ADEQUATE PAIN MANAGEMENT OF GENERAL PAIN. PT INTERMITTENTLY REFUSING TURNS. EDUCATED. TOLERATING POC. VSS. NO DISTRESS NOTED.
--- NOTE | 2019-09-17 18:58 | NUR ---
PT HAD 9 BEAT RUN OF VTA. WAS PAGED. NO CALLBACK OF YET. PT CARE TRANSFERRED TO [facility] NURSE WHO IS AWARE THAT THIS ISSUE NEEDS F/U.
[2019-09-17 19:57] VITALS: BP 122/69
--- NOTE | 2019-09-18 05:22 | NUR ---
MINIMAL C/O REPORTED OVERNIGHT. PRN TRAMADOL GIVEN X1. `TAO CATHETER INTACT. VSS. SCABBED PRESSURE SORE ON COCCYX, BARRIER CREAM APPLIED. NO FURTHER C/O AT THIS TIME. WILL CONTINUE TO FOLLOW POC.
[2019-09-18 05:30] VITALS: BP 144/88
[2019-09-18 08:00] VITALS: BP 118/72
[2019-09-18 12:10] VITALS: BP 129/85
[2019-09-18 17:05] VITALS: BP 120/73
[2019-09-18 17:40] LABS: HEMOGLOBIN 13.6 gm/dL (14.0-18.0); MCH 26.2 pg (26.0-34.0); MCHC 30.2 g/dL (28.0-37.0); MCV 86.9 fL (80.0-100.0); RBC 5.18 mil/uL (4.50-6.00); RDW 18.9 % (10.5-14.5); WBC 14.4 thou/uL (4.0-11.0)
[2019-09-18 17:43] LABS: CALCIUM 9.4 mg/dL (8.5-10.1); CREATININE 1.5 mg/dL (0.7-1.3)
[2019-09-18 17:44] LABS: POTASSIUM 5.2 mmol/L (3.5-5.1)
--- NOTE | 2019-09-18 18:02 | NUR ---
ASSUMED CARE AT SHIFT CHANGE, ALERT AND ORIENTED X3-4, HE MAKES NEEDS KNOWN, POOR APPETITE AND CONSUMED ONLY 25% OF HIS FOOD, Q2 POSITIONED NEEDED FOR COMFORT. WILL CONTINUE WITH POC.
[2019-09-18 21:22] VITALS: BP 114/86
--- NOTE | 2019-09-19 04:29 | NUR ---
PT CARE ASSUMED AROUND 1900. PT C/O NO PAIN OR N/V/D. PT OXYGEN SATURATION 88% INCREASED OXYGEN FROM 2L TO 3L AND SATURATION INCREASED TO 97%. PT RESTED COMFORTABLY THRU NIGHT WITH MINIMAL INTERRUPTIONS. WILL CONTINUE TO MONITOR PER POC.
[2019-09-19 05:07] VITALS: BP 123/73
[2019-09-19 08:20] VITALS: BP 113/70
--- NOTE | 2019-09-19 09:14 | NUR ---
WOUND CARE F/U assessed wound w/ staff radiation therapist SARI, pressure injury stage 2 sacral area, some healing, encouraged pt to turn more, off loading pressure relief, no pain RECOMMENDATIONS; cont w/ zguard daily and prn, encouraged to keep off wound, turn as much as possible, cont w/ low air loss pump to bed, staff radiation therapist aware
[2019-09-19 11:55] VITALS: BP 104/63
--- NOTE | 2019-09-19 14:46 | NUR ---
met with patient and discussed post acute care. Patient does not recall prev conversation with casemgt. Discussed he did not want [facility] and agreeable to referral to [facility]. They have started auth process. Questioned patient if could update Yessenia and patient reports yes so she knows location. Called Yesesnia and she questions if she should be DPOA but did not mention patient has a DPOA. Reviewed DPOA process and left information in room. Dr Dee reports patient has a DPOA Randall Luna . Sp with Yessenia who reports yes its Bill Cheryl but hes out of town and everyone calls her and she brings him to apts. Randall was made DPOA in 2000. Called and left message for Randall Luna. Alerted to Yessenia when she visits she can discuss with patient. Patient has no family. He reports only child and his parents only children. He reports Randall was a prev coworker. Randall lives in [place].
[2019-09-19 15:30] VITALS: BP 102/51
--- NOTE | 2019-09-19 16:34 | NUR ---
FAXED CLINICAL UPDATE TO [facility] SPOKE WITH NICOLAS IN ADM SHE RECEIVED UPDATE AND WILL SUBMIT FOR AUTH. BEATRIZ TO FOLLOW.
--- NOTE | 2019-09-19 17:12 | NUR ---
I have reviewed the documentation by GEMMA NICOLE from 09/19/19 to 09/19/19 and I concur with it. DIONE NAVARRO
--- NOTE | 2019-09-19 19:50 | NUR ---
ASSUMED CARE AT 0700, ALERT AND ORIENTED X4, AND FORGETFUL. C/O COCCYX PAIN Q2 POSITIONED AND APPLIED A BARIER CREAM NEEDED. POOR APPETITE, AND REFUSED MEALS. ON IVF AND SCHEDULED MEDS GIVEN. TAO DISCONTINUED AND PATIENT INCONTINENT AND VOIDED X3. SPOKE WITH DPOA AND UPDATE OF PATIENT CONDITION GIVEN. WILL CONTINUE WITH POC.
[2019-09-19 20:20] VITALS: BP 120/69
--- NOTE | 2019-09-20 06:10 | NUR ---
PATIENTS CARES WERE ASSUMED AT SHIFT CHANGE.PATIENT WAS ASSESSED AND MEDS WERE PASSED. PATIENT CONTINUES TO BE INCONTINENT AND UNAWEAR HE IS VOIDING. HOURLY ROUNDING WAS DONE. THE BED IS IN A LOW AND LOCKED POSITION
[2019-09-20 07:09] VITALS: BP 113/66
[2019-09-20 07:45] VITALS: BP 106/64
[2019-09-20] MEDS ORDERED: TORSEMIDE20 MG PO (08:29)
[2019-09-20] MEDS ORDERED: VERAPAMIL HCL120 MG PO (08:29)
[2019-09-20] MEDS ORDERED: MELATONIN5 M1 PO (08:30)
[2019-09-20] MEDS ORDERED: PEPCID20 MG PO (08:30)
[2019-09-20] MEDS ORDERED: PREDNISONE 20 M20 M1 PO (08:31)
[2019-09-20 10:15] LABS: CALCIUM 9.6 mg/dL (8.5-10.1); CREATININE 1.2 mg/dL (0.7-1.3); POTASSIUM 3.8 mmol/L (3.5-5.1)
[2019-09-20 14:47] VITALS: BP 109/73
--- NOTE | 2019-09-20 15:49 | NUR ---
ASSUMED CARE AT SHIFT CHANGE, ALERT AND ORIENTED X3, FORGETFUL. VSS AND AFBRILE. AFIB ON THE MONITOR. APPETITE IMPROVED AT 20-25% FOR BREAKFAST AND LUNCH. AND WILL CONTINUE WITH POC.
--- NOTE | 2019-09-20 16:06 | PATH ---
[facility] [address] [place] [address] PATHOLOGY RPT PROCEDURE Name: PAEZDIANA Room #: 208-P [facility] IN M.R.#: [id number] Admission: 09/10/19 Date of : 30 Discharge: Report #: [id number] Path Case #: [id number] [facility] Accession Number: [id number] . 01 Material submitted: . cecum - POLYP AT CECUM X3 . 01 Clinical history: . Preop DX: Anemia Postop DX: Diverticulosis, melanosis . 02 Diagnosis: Polyp x3, cecum, endoscopic biopsy: - Multiple fragments sampled showing tubular adenoma. - Negative for high-grade dysplasia within any of the fragments on the slides examined. (IUV:daniella; 09/20/2019) QMS 09/20/2019 1033 Local . 02 Electronically signed: . Lizbeth Kaiser MD, Pathologist NPI- [id number] . 01 Gross description: . Received in formalin labeled "Khanh Paez, polyp at cecum x3," is a 2.2 x 1.2 x 0.2 cm aggregate of lozada-brown soft tissue fragments and scant vegetative material. The specimen is submitted entirely in cassette A1. ([facility]; 09/19/2019) XDC/XDC 09/19/2019 0924 Local . 02 Pathologist provided ICD-10: D12.0 . 02 CPT . 163334 Specimen Comment: A courtesy copy of this report has been sent to [phone], [phone] Specimen Comment: [phone] Specimen Comment: Report sent to and Performed at: [address], [place] [id number] MD Kristian Bradford MD Phone: [phone] Performed at: [address] [id number] MD Lizbeth Kaiser MD Phone: [phone]
--- NOTE | 2019-09-20 16:07 | HC ---
[facility] [place] [address] CONSULTATION Name: ENRIQUE ANTONIO Room #: 208-P [facility] IN M.R.#: [id number] Admission: 09/10/19 Attend Phys: Ramon Dee MD Discharge: Date of : 30 Report #: [id number] THIS REPORT FOR: //name// CC: Ramon Dee DATE OF SERVICE: 09/12/2019 HISTORY OF PRESENT ILLNESS: The patient is an 89-year-old male who was admitted with shaking chills and diagnosed with COPD exacerbation along with diastolic congestive heart failure with mild exacerbation. He is noted to have atrial fibrillation with rapid ventricular rate. He is on nasal prong O2 2 liters. He is being diuresed. He is also being given iron for anemia of chronic disease. He has medical complexity with generalized debilitation. We are seeing him in Rehabilitation Medicine consultation. PAST MEDICAL HISTORY: Includes paroxysmal atrial fibrillation, COPD, anemia of chronic disease, chronic back pain, and neuropathy. PAST SURGICAL HISTORY: He has had multiple EGDs for esophageal stricture. He has a history of surgery of his cervical spine C1 through C7, dislocated shoulder and the right rib fractures, right total knee replacement. FAMILY HISTORY: Noncontributory. MEDICATIONS: Please see the full medication listing. SOCIAL HISTORY: Lives in a house alone. No steps, ranch style. There is a stair glide to the basement. There is a neighbor across the street that helps with cooking and monitors his medications, his prescriptions. REVIEW OF SYSTEMS: No current complaints of chest pain, shortness of breath, or abdominal discomfort. PHYSICAL EXAMINATION: GENERAL: A pleasant 89-year-old white male, in no obvious distress. He is alert, pleasant, oriented. The patient is appropriate. Appears to be a reasonable historian. He is on 2 liters nasal prong O2. VITAL SIGNS: Temperature 97.4 axillary, pulse 129, respirations 18, blood pressure 124/78. HEENT: Facies appeared symmetric. EXTREMITIES: Functional range of motion of both upper extremities. Strength is grade 4-/5. DTRs are trace to 1. Lower extremities, no focal calf swelling. Functional range of motion with strength grade 3+ to 4-/5. DTRs are trace. His legs are wrapped with the lymphedema therapist involved. ASSESSMENT: An 89-year-old male with the following problem list: [address] [address] CONSULTATION Name: ENRIQUE ANTONIO Room #: 208-P [facility] IN M.R.#: [id number] Admission: 09/10/19 Attend Phys: Ramon Dee MD Discharge: Date of : 30 Report #: [id number] 1. Medical complexity with generalized debilitation. 2. Chronic obstructive pulmonary disease exacerbation. 3. Diastolic congestive heart failure with mild exacerbation. 4. Atrial fibrillation with rapid ventricular rate with a history of sick sinus syndrome. 5. Anemia of chronic disease, currently getting IV iron. 6. History of esophageal stricture with dilatation in 2017. 7. Stage 1 pressure ulcer noted. PLAN: Therapies to evaluate. The patient was not on any oxygen premorbidly. He does have the multiple medical comorbidities as noted above. He is very motivated to return back to the home setting. We will be glad to follow along with you regarding his rehab therapy needs. <ELECTRONICALLY SIGNED> By: Vinicio Knapp MD 09/20/19 1607 1046 2124 Vinicio Knapp MD /[facility]
--- NOTE | 2019-09-20 16:35 | NUR ---
[facility] rec auth and patient stable for dc today. Faxed orders. Chart copied including DPOA paperwork and face sheet. Notified patiet of dc and timeframe. Notified Randall Luna his DPOA and neighbor Yessenia of dc and timeframe. Orders faxed, RN called report no further needs.
--- NOTE | 2019-09-22 10:04 | P ---
[facility] [place] [address] PROCEDURE REPORT Name: ENRIQUE ANTONIO Room #: 208-P [facility] IN M.R.#: [id number] Admission: 09/10/19 Attend Phys: Ramon Dee MD Discharge: 09/20/19 Date of : 30 Report #: [id number] THIS REPORT FOR: //name// CC: Ramon Dee MD INPATIENT COLONOSCOPY REPORT BRIEF HISTORY: The patient is an 89-year-old male with marked iron deficiency anemia. He has not had a previous colonoscopy. Recent upper endoscopy was nondiagnostic for source of bleeding. PREOPERATIVE DIAGNOSIS: Iron deficiency anemia. POSTOPERATIVE DIAGNOSES: 1. Multiple colon polyps. 2. Moderate left-sided diverticulosis coli. 3. Melanosis coli. 4. Diffusely dilated and tortuous colon, consistent with chronic constipation. MEDICATIONS: Deep sedation with propofol per anesthesia. SPECIMEN: Colon polyps from cecum. ESTIMATED BLOOD LOSS: 3 mL. PROCEDURE: Colonoscopy to cecum and terminal ileum with snare polypectomy. FINDINGS: Prior to propofol sedation, procedure of colonoscopy discussed with the patient as well as potential risks and its complications. He indicates he understands and desires to proceed. DESCRIPTION OF PROCEDURE: With the patient in left lateral decubitus position, digital examination was completed, which revealed no abnormalities. Subsequently, the Olympus video colonoscope was introduced in the rectum, advanced under direct vision to the cecum. The patient's prep was quite limited. As we inserted the scope, we did extensive irrigation and suctioning. It is noted the patient is 89 years old. It is noted the patient was prepping for several days. Even though there were significant limitations of prep, it was felt this is likely the best we could do with this patient. Therefore, we continued on. The cecum was reached and was identified. I could see the ileocecal valve and I was able to inspect the distal segment of the ileum. However, I could not clear all the material out of the cecum because there was some solid particulate material. Therefore, I could not see the appendiceal orifice. However, about half the cecum was visualized and 3 polyps were seen. One was about 6-7 mm sessile polyp removed by cold snare polypectomy. The other was about 4 mm wide and about 10-12 mm in length and removed in [facility] [address] [place] [address] PROCEDURE REPORT Name: ANTONIOENRIQUE Room #: 208-P [facility] IN .R.#: [id number] Admission: 09/10/19 Attend Phys: Ramon Dee MD Discharge: 09/20/19 Date of : 30 Report #: [id number] fashion by cold snare polypectomy. The other was about 6-7 mm, removed by cold snare polypectomy. There was good hemostasis. There was not active bleeding, but these polyps were of significant size and potentially could have been a source of occult blood loss. At that point, the scope was slowly withdrawn and careful circumferential views were obtained. We continued to irrigate, suction and flush. We cleaned up as well as possible. ____ reasonable views were obtained in the mucosa, although still some liquidy material remained in the colon. He was noted to have moderately severe melanosis coli. He was also noted to have a moderately dilated and tortuous colon, consistent with chronic constipation. As we withdrew the scope, a few diverticula were seen in the proximal colon. There was no endoscopic evidence of diverticulitis. As we withdrew the scope, no additional polyps were seen within the limitations of the prep. Scope was withdrawn in the left colon and cleaned up as well as possible. He was noted to have moderate to severe diverticular disease without endoscopic evidence of diverticulitis. The scope was withdrawn in the rectum and again this was cleaned up as well as possible. No additional abnormalities were seen. Upon retroflexion, no abnormalities were seen. Hemorrhoids were not seen. Scope was withdrawn. The patient tolerated the procedure well. DISPOSITION: The patient with iron deficiency anemia. He had 3 polyps in the cecum, which were removed. Unfortunately, the entire cecum could not be seen. There may be additional polyps, but there was certainly no fungating mass. PLAN: We will follow up on the pathology. We placed the patient on iron supplementation. Suggest he take MiraLax for constipation. <ELECTRONICALLY SIGNED> By: Enrique Beck MD 09/22/19 1004 [id number] Enrique Beck MD /nt
--- NOTE | 2019-09-22 14:09 | NUR ---
A copy of the pt's dpoa for health care faxed to [facility] for their psych social worker. She was provided pt's dpoa/friend Randall's info as well as his friend/humberto Casas who helps with appts and care at home.
--- NOTE | 2019-09-23 03:07 | H ---
[facility] [place] [address] HISTORY AND PHYSICAL Name: ENRIQUE ANTONIO Room #: 208-P [facility] IN M.R.#: [id number] Admission: 09/10/19 Attend Phys: Ramon Dee MD Discharge: 09/20/19 Date of : 30 Report #: [id number] THIS REPORT FOR: //name// CC: Bari David Dee DATE OF SERVICE: 09/10/2019 PRIMARY CARE PHYSICIAN: Ramon Dee MD CHIEF COMPLAINT: 1. Shortness of breath, waking him up from sleep, getting worse for the last couple of days. 2. Lower extremity edema, getting worse. 3. Something hurts in the lower back, which I got a rugburn. HISTORY OF PRESENT ILLNESS: The patient is a very pleasant 89-year-old hard of hearing gentleman with a known history of paroxysmal atrial fibrillation with rapid ventricular rate as well as diastolic heart failure and COPD. The patient informs me that to his knowledge, he has not had any fever, shaking chills, night sweats, nausea, vomiting and he actually was constipated, so he took some laxative, milk of mag last night and he really needs to have a bowel movement now, but denies any diarrhea otherwise. The patient informs me that he is unable to lie down flat because of shortness of breath as well as has been having significantly worse swelling in both legs. He denies any chest pain or paroxysmal nocturnal dyspnea as he informs me that he just is up several times at night to go to the bathroom as well. The patient denies any dysuria, hematuria, frequency or urgency of urination and he has also not had any hematochezia or melena. The patient denies any groin pain, which he has had, recent hernia related pain, and he denies any dizziness, lightheadedness, fall or syncopal episode. The patient also denies any weakness or numbness of any part of the body. PAST MEDICAL HISTORY: Significant for: 1. Anemia of chronic disease. 2. Paroxysmal atrial fibrillation. 3. Chronic obstructive pulmonary disease. 4. Hypertension. 5. Degenerative joint disease with chronic pain. 6. Inguinal hernia that is reducible. 7. Chronic back pain with a history of back surgery. 8. Frequent falls. 9. Glaucoma. 10. Neuropathy. 11. Chronic headaches. [address] [address] HISTORY AND PHYSICAL Name: ENRIQUE ANTONIO Room #: 208-P [facility] IN .R.#: [id number] Admission: 09/10/19 Attend Phys: Ramon Dee MD Discharge: 09/20/19 Date of : 30 Report #: [id number] ALLERGIES: The patient has no known drug allergies. SOCIAL HISTORY: The patient smoked 1 pack per day; however, quit at the age of 69. The patient informs me that he drank alcohol as well for many years; however, quit when he was 69 years old. The patient denies any recreational drug use. Lives at home alone, uses a walker for ambulation and has help from his neighbor for his cooking and also has a home health nurse comes to help him with his medication checks as well. The patient informs me that emergency contact: Yessenia Garvey, and she lives right across the street from him and also helps with the cooking and different chores. PAST SURGICAL HISTORY: 1. The patient has had multiple EGD for esophageal stricture, the most recent being in November of 2016. 2. Also, has had a surgery of his cervical spine from C1 through C7. 3. Dislocated shoulder on the right. 4. Rib fractures with conservative management. 5. Right knee replacement. 6. Fracture of the left arm. FAMILY HISTORY: Not obtained. CURRENT MEDICATIONS: 1. Diltiazem 240 mg daily. 2. Tramadol 50 mg daily p.r.n. 3. Fioricet 1 tablet q. 4 hours p.r.n. for headache. Last dose was yesterday. 4. Timolol maleate eyedrops. 5. Latanoprost eye drops. 6. Senna 2 tablets daily p.r.n. for constipation. REVIEW OF SYSTEMS: Ten point review of system was done. Please see HPI above. The patient absolutely denies any hematochezia, melena or hematuria and does not have any history of recent fall and denies any dizziness, lightheadedness, or chest pain. The patient is not on home oxygen. He does have COPD as well as diastolic congestive heart failure. PHYSICAL EXAMINATION: VITAL SIGNS: Temperature 37.1, heart rate 109, respirations 20, blood pressure 98/63, pulse oximeter 95% on 2 liters of oxygen by nasal cannula at the time of admission to the Emergency Room at 12:09 p.m. At the time of examination, heart rate 123, respirations 14, blood pressure 119/76, pulse oximeter 98% on 2 liters of oxygen by nasal cannula. GENERAL: Alert and oriented to time, place and person, extremely hard of hearing 89-year-old gentleman who is sitting upright at 45 degrees and appears comfortable. HEENT: Normocephalic, atraumatic. Pupils are equally round and reactive to [address] [address] HISTORY AND PHYSICAL Name: ENRIQUE ANTONIO Room #: 208-P [facility] IN M.R.#: [id number] Admission: 09/10/19 Attend Phys: Ramon Dee MD Discharge: 09/20/19 Date of : 30 Report #: [id number] light. Extraocular muscle movements are intact. Conjunctivae are pale. Sclerae nonicteric. Oropharynx clear. Mucous membranes are moist. No thrush noted. Dentures noted, which the patient informs me that he has had for several years. NECK: Supple, no JVD, no lymphadenopathy. HEART: S1, S2, irregularly irregular with tachycardia noted. LUNGS: End expiratory wheezes scattered in all lung katz noted bilaterally, symmetrical chest expansion present. No crackles are noted on clinical exam. ABDOMEN: Soft, nontender, nondistended, normal active bowel sounds and no inguinal hernia appreciated at the time of clinical exam; however patient is in bed, supine and is unable to stand up right now. RECTAL: Deferred and it was done by the Emergency Room provider with the Hemoccult negative. EXTREMITIES: 3+ pitting edema of both lower extremities with extremely dry and flaky skin, but no skin breakdown noted in lower extremities. SKIN: In the gluteal region indicates approximately 1 cm area with redness and superficial abrasions, but no induration or discharge noted, consistent with stage 1 decubitus ulcer. NEUROLOGIC: Completely nonfocal. LABORATORY DATA: 1. The patient's WBC count 5200, hemoglobin 7.4, which is when compared with the lifetime summary, the patient had hemoglobin of 10.3 on the day of discharge on August 10, a month ago; however, he has had hemoglobin ranging between 8.8-11 in last 1 year. Red cell indices are significant for a low MCH and markedly elevated RDW. Platelet count is normal at 268, 70% segmented neutrophil for 5200 WBC is noted. Chemistries indicate sodium 140, potassium 3.5, chloride 104, bicarbonate 24, anion gap 12, BUN 5, creatinine 0.9. Estimated GFR 79, glucose 109, calcium 8.3, AST 24, ALT 18, alkaline phosphatase 76. Troponin I less than 0.06 and beta natriuretic peptide is 1074, total protein 6.4, albumin low at 3.2 and the TSH is normal at 2.796. Urinalysis is pending at the time of dictation. 3. Chest x-ray indicates a patchy left lower lobe atelectasis or pneumonitis with limited depth of inspiration and cardiomegaly without evidence of congestive heart failure noted. ASSESSMENT AND PLAN: 1. Chronic obstructive pulmonary disease exacerbation. 2. Diastolic congestive heart failure with a mild exacerbation. 3. Atrial fibrillation with rapid ventricular rate with a history of sick sinus syndrome. 4. Anemia of chronic disease with 2 grams drop in hemoglobin in last 1 month. 5. History of esophageal stricture with dilatation done in 2017. 6. Stage 1 skin a decubitus ulcer. The patient wishes to be FULL CODE. [address] [address] HISTORY AND PHYSICAL Name: ENRIQUE ANTONIO Room #: 208-P [facility] IN M.R.#: [id number] Admission: 09/10/19 Attend Phys: Ramon Dee MD Discharge: 09/20/19 Date of : 30 Report #: [id number] PLAN: 1. The patient is being admitted to CCU. 2. The patient is not on home oxygen and has noted to have significant hypoxemia, which is likely secondary to COPD exacerbation as well as mild CHF exacerbation. The patient has received 1 dose of Lasix in the Emergency Room. Will continue IV Lasix b.i.d. The patient is on 240 mg of diltiazem extended release at home. Will continue the same. The patient has not required IV diltiazem drip here in the hospital and has responded to Lasix and rate did come down, so at this time, I will not start diltiazem drip and continue symptomatic treatment. However, if the rate is out of control, then we will start diltiazem drip without a bolus as the patient has low normal blood pressure. 3. For migraine the patient takes Fioricet and so we will leave it for t.i.d. p.r.n., but not more than that as the patient is 89 years old and is a high risk for fall. However, the patient informs me that he has not had any changes in his medication, Ultram and Fioricet for his chronic pain and he wants them on the board as he takes them at home. 4. Anemia of chronic disease with hemoglobin 7.4, is an acute drop in last 1 month. However, the patient has not had any hematochezia or melena. We will go ahead and recheck in 4 hours and we will also do type and screen as the patient has symptomatic dyspnea as well as orthopnea along with CHF and COPD exacerbations so if patient is symptomatic, then we will give 1 unit of PRBC transfusion with the hemoglobin being 7.4 and discussed it with the patient as well as Emergency Room provider as well as nurse taking care of the patient. A full code order has been written by ER provider and the patient will be followed up by Dr. Dee on Thursday morning and we will continue to provide care today and tomorrow here in CCU. PT, OT and foster care social worker will be consulted. <ELECTRONICALLY SIGNED> By: Yin Hernandez MD 09/23/19 [id number] Yin Hernandez MD /nt
== END 2019-09-20 16:33 | DRG 368 ==
LOC: ER 12:06 → EROBS 14:48 → 2N 14:48
PROVIDERS: Anesthesiology; Emergency Medicine; Family Medicine; Internal Medicine; Nurse Practitioner Adult Health; ADMIT Family Medicine
PROC: 30233N1 Transfusion of Nonautologous Red Blood Cells into Peripheral Vein, Percutaneous Approach (ICD-10-PCS; principal; 2019-09-11)
PROC: 0DB88ZX Excision of Small Intestine, Via Natural or Artificial Opening Endoscopic, Diagnostic (ICD-10-PCS; 2019-09-13)
PROC: 0DB68ZX Excision of Stomach, Via Natural or Artificial Opening Endoscopic, Diagnostic (ICD-10-PCS; 2019-09-13)
PROC: 0DD28ZX Extraction of Middle Esophagus, Via Natural or Artificial Opening Endoscopic, Diagnostic (ICD-10-PCS; 2019-09-13)
PROC: 0DBH8ZZ Excision of Cecum, Via Natural or Artificial Opening Endoscopic (ICD-10-PCS; 2019-09-16)
DX: B37.81 Candidal esophagitis (principal); I50.33 Acute on chronic diastolic (congestive) heart failure; K22.11 Ulcer of esophagus with bleeding; K29.71 Gastritis, unspecified, with bleeding; K57.31 Diverticulosis of large intestine without perforation or abscess with bleeding; J44.1 Chronic obstructive pulmonary disease with (acute) exacerbation; I48.20 Chronic atrial fibrillation, unspecified; K59.39 Other megacolon; I11.0 Hypertensive heart disease with heart failure; Z96.651 Presence of right artificial knee joint; D63.8 Anemia in other chronic diseases classified elsewhere; G89.29 Other chronic pain; G62.9 Polyneuropathy, unspecified; M54.9 Dorsalgia, unspecified; Z60.2 Problems related to living alone; R53.81 Other malaise; R29.6 Repeated falls; K44.9 Diaphragmatic hernia without obstruction or gangrene; D12.0 Benign neoplasm of cecum; K63.89 Other specified diseases of intestine; D50.9 Iron deficiency anemia, unspecified; L89.151 Pressure ulcer of sacral region, stage 1; G43.909 Migraine, unspecified, not intractable, without status migrainosus; K59.00 Constipation, unspecified; R33.9 Retention of urine, unspecified; Z90.49 Acquired absence of other specified parts of digestive tract; Z79.899 Other long term (current) drug therapy; Z87.891 Personal history of nicotine dependence
CPT/HCPCS: 10081; 62110; 62900; 70005